=== PATIENT | female | born 1950 | race Caucasian/White ===

== ENCOUNTER → 2017-07-11 | Outpatient (CLI) | payer MEDICARE, SELFPAY | PROVIDERS: Visit Provider Internal Medicine Adolescent Medicine | DX: E78.5 Hyperlipidemia, unspecified (principal); E03.9 Hypothyroidism, unspecified; E11.9 Type 2 diabetes mellitus without complications | CPT/HCPCS: 36415; 80053; 80061; 83036; 84443 ==

== ENCOUNTER 2017-09-08 20:18 | Emergency (ER) | payer MEDICARE, SELFPAY ==
[2017-09-08 20:33] VITALS: BP 129/90; PULSE 66; RESP 18; TEMP 36.8; O2SAT 98; BMI 39.8
--- NOTE | 2017-09-08 20:43 | HMH.EDUTC ---
[facility] [place] Impression: Yeast infection Disposition: Home, Self-Care Condition on Discharge: Good Instructions: DI for Yeast Infection-Skin, Yeast Infection-Skin Additional Instructions: Keep area dry Wash with soap and water apply cream, then Vaseline, and use gauze pads to keep skin from making contact with skin. If symptoms spread or gets worse follow-up with primary care If symptoms worsen or do not improve return or be seen in the ER Prescriptions: Nystatin [Nystatin Cr 100,000 Units/GM 30GM] 0 gm TOPICAL UD DOSE PK #1 cream..g. Referrals: Osei Lawrence MD [Primary Care Provider] - Time of Disposition: 20:50 Medical Decision Making Vital Signs: 09/08/17 20:33 Temperature 98.2 F Temperature Source Tympanic Pulse Rate [Left Brachial] 66 Pulse Rate [Radial] 66 Respiratory Rate 18 Blood Pressure [Left Arm] 129/90 Blood Pressure Mean [Left Arm] 103 Blood Pressure Source [Left Arm] Automatic Cuff Blood Pressure Position [Left Arm] Sitting 02 Sat by Pulse Oximetry 98 Oxygen Delivery Method Room Air - Franko Inquiry Pt receiving controlled substance: No [facility] [place] - General Chief complaint: Urgent Treatment Center Stated complaint: rash Time Seen by Provider: 09/08/17 20:45 Mode of Arrival: Ambulatory Source of Information: Patient Limitations: No Limitations HEENT Symptoms (Recalled from RN notes): No Resp Symptoms (Recalled from RN notes): No Skin Symptoms (Recalled from RN notes): Yes (RASH) MS Symptoms (Recalled from RN notes): No Functional Status (Recalled from RN notes): N/A - History of Present Illness Provider Complaint: 66-year-old female presents for a rash under left breast and abdominal fold for 1 week. Patient states she has been keeping washcloths there but has noticed the rash is spreading. - Related Data Previous Rx's Medication Instructions Recorded Nystatin [Nystatin Cr 100,000 0 gm TOPICAL UD DOSE PK #1 09/08/17 Units/GM 30GM] cream..g. Allergies Allergy/AdvReac Type Severity Reaction Status Date / Time No Known Allergies Allergy Unverified 07/03/17 14:39 - Worker's Comp Is this a Worker's Comp case?: No Is this an [facility] Worker's Comp?: No Is this a [facility] Worker's Comp?: No [facility] History I have reviewed the patient's past medical history: Yes Medical History: Denies:: Cancer, Diabetes Mellitus Type 1, Diabetes Mellitus Type 2, MRSA Amputation: No Fractures: No - Social History Educational Level: Completed Grade School Smoking Status: Never smoker Alcohol Intake: never - Psychiatric History Expresses thoughts of harming self/others: None Suicide Plan Description: No Plan ROS Obtained: Yes All systems reviewed & no additional complaints, Yes Systems reviewed as appropriate & no additional complaints - Constitutional Constitutional: Reports system reviewed and no additional complaints, except as docu - Eyes Eyes: Reports system reviewed and no additional complaints, except as docu - ENT Ears, Nose, Mouth, and Throat: Reports system reviewed and no additional complaints, except as docu - Cardiovascular Cardiovascular: Reports system reviewed and no additional complaints, except as docu - Respiratory Respiratory: Yes system reviewed and no additional complaints, except as docu - Gastrointestinal Gastrointestingal: Reports: system reviewed and no additional complaints, except as docu - Musculoskeletal Musculoskeletal: Reports system reviewed and no additional complaints, except as docu - Integumentary/Breasts Skin/Breast: Reports system reviewed and no additional complaints, except as docu - Neurologic Neurologic: Reports system reviewed and no additional complaints, except as docu - Endocrine Endocrine: Reports system reviewed and no additional complaints, except as docu - Hematologic/Lymphatic Henatologic/Lymphatic: Reports system reviewed and no additional complaints, except as docu - Allergic/Immunologic Al
--- NOTE | 2017-09-08 20:46 | ED_ITS ---
[facility] [place] Impression: Yeast infection Disposition: Home, Self-Care Condition on Discharge: Good Instructions: DI for Yeast Infection-Skin, Yeast Infection-Skin Additional Instructions: Keep area dry Wash with soap and water apply cream, then Vaseline, and use gauze pads to keep skin from making contact with skin. If symptoms spread or gets worse follow-up with primary care If symptoms worsen or do not improve return or be seen in the ER Prescriptions: Nystatin [Nystatin Cr 100,000 Units/GM 30GM] 0 gm TOPICAL UD DOSE PK #1 cream..g. Referrals: Osei Lawrence MD [Primary Care Provider] - Time of Disposition: 20:50 Medical Decision Making Vital Signs: 09/08/17 20:33 Temperature 98.2 F Temperature Source Tympanic Pulse Rate [Left Brachial] 66 Pulse Rate [Radial] 66 Respiratory Rate 18 Blood Pressure [Left Arm] 129/90 Blood Pressure Mean [Left Arm] 103 Blood Pressure Source [Left Arm] Automatic Cuff Blood Pressure Position [Left Arm] Sitting 02 Sat by Pulse Oximetry 98 Oxygen Delivery Method Room Air - Franko Inquiry Pt receiving controlled substance: No [facility] [place] - General Chief complaint: Urgent Treatment Center Stated complaint: rash Time Seen by Provider: 09/08/17 20:45 Mode of Arrival: Ambulatory Source of Information: Patient Limitations: No Limitations HEENT Symptoms (Recalled from RN notes): No Resp Symptoms (Recalled from RN notes): No Skin Symptoms (Recalled from RN notes): Yes (RASH) MS Symptoms (Recalled from RN notes): No Functional Status (Recalled from RN notes): N/A - History of Present Illness Provider Complaint: 66-year-old female presents for a rash under left breast and abdominal fold for 1 week. Patient states she has been keeping washcloths there but has noticed the rash is spreading. - Related Data Previous Rx's Medication Instructions Recorded Nystatin [Nystatin Cr 100,000 0 gm TOPICAL UD DOSE PK #1 09/08/17 Units/GM 30GM] cream..g. Allergies Allergy/AdvReac Type Severity Reaction Status Date / Time No Known Allergies Allergy Unverified 07/03/17 14:39 - Worker's Comp Is this a Worker's Comp case?: No Is this an [facility] Worker's Comp?: No Is this a [facility] Worker's Comp?: No [facility] History I have reviewed the patient's past medical history: Yes Medical History: Denies:: Cancer, Diabetes Mellitus Type 1, Diabetes Mellitus Type 2, MRSA Amputation: No Fractures: No - Social History Educational Level: Completed Grade School Smoking Status: Never smoker Alcohol Intake: never - Psychiatric History Expresses thoughts of harming self/others: None Suicide Plan Description: No Plan ROS Obtained: Yes All systems reviewed & no additional complaints, Yes Systems reviewed as appropriate & no additional complaints - Constitutional Constitutional: Reports system reviewed and no additional complaints, except as docu - Eyes Eyes: Reports system reviewed and no additional complaints, except as docu - ENT Ears, Nose, Mouth, and Throat: Reports system reviewed and no additional complaints, except as docu - Cardiovascular Cardiovascular: Reports system reviewed and no additional complaints, except as docu - Respiratory Respiratory: Yes system reviewed and no additional complaints, except as docu - Gastrointestinal Gastr
[2017-09-08 20:53] VITALS: BP 129/90; PULSE 66; RESP 18; TEMP 36.8; O2SAT 98
== END 2017-09-08 20:55 | disposition home or self-care (01) ==
PROVIDERS: Emergency Provider Nurse Practitioner Family; Family Provider Internal Medicine Adolescent Medicine; PCP Internal Medicine Adolescent Medicine
DX: B37.9 Candidiasis, unspecified (principal)
CPT/HCPCS: G0463; 99202

== ENCOUNTER → 2017-12-03 08:42 | Outpatient (POV) | payer MEDICARE, SELFPAY | PROVIDERS: Family Provider Internal Medicine Adolescent Medicine; PCP Internal Medicine Adolescent Medicine; Visit Provider Physician Assistant | DX: Z00.00 Encounter for general adult medical examination without abnormal findings (principal) ==

== ENCOUNTER → 2018-01-05 08:10 | Outpatient (CLI) | payer MEDICARE, SELFPAY ==
[2018-01-05 08:53] LABS: Hemoglobin A1C 6.9 % (0.0-7.0)
[2018-01-05 09:07] LABS: Alanine Aminotransferase 32 U/L (12-78); Albumin Level 3.8 gm/dL (3.4-5.0); Albumin/Globulin Ratio 1.3 (1.1-1.8); Alkaline Phosphatase 79 U/L (46-116); Anion Gap 8.2 mEq/L (5-15); Aspartate Amino Transferase 21 U/L (15-37); Bilirubin,Total 0.4 mg/dL (0.2-1.0); Blood Urea Nitrogen 19 mg/dL (7-18); Calcium 9.3 mg/dL (8.5-10.1); Carbon Dioxide 30 mmol/L (21.0-32.0); Chloride 105 mmol/L (98-107); Chol/HDL Ratio 4.5 (1-3.5); Cholesterol 241 mg/dL (140-200); Creatinine,Serum 0.77 mg/dL (0.55-1.02); Estimated Glomerular Filt Rate 75 ml/min (>60); GFR (African American) 90 ML/MIN (>60); Glucose 144 mg/dL (74-106); HDL Cholesterol 53 mg/dL (29-89); LDL Cholesterol 152 mg/dL (0-130); Potassium 4.2 mmoL/L (3.5-5.1); Sodium 139 mmol/L (136-145); Thyroid Stimulating Hormone 4.09 uIU/ml (0.358-3.740); Total Protein,Serum 6.8 gm/dL (6.4-8.2); Triglycerides 179 mg/dL (30-200); VLDL Cholesterol 36 mg/dL (0-40)
== END ==
PROVIDERS: Visit Provider Internal Medicine Adolescent Medicine
DX: E11.9 Type 2 diabetes mellitus without complications (principal); E78.5 Hyperlipidemia, unspecified; E03.9 Hypothyroidism, unspecified
CPT/HCPCS: 36415; 80053; 80061; 83036; 84443

== ENCOUNTER → 2018-01-15 10:55 | Outpatient (CLI) | payer MEDICARE, SELFPAY ==
--- NOTE | 2018-01-15 10:57 | CT_ITS ---
CT abdomen pelvis wo/w con CLINICAL INDICATION: Abdominal mass, left lower quadrant pain, abdominal soreness ITS.REASON: ABD PAIN, ANEMIA ORDERING PHYSICIAN: Osei Lawrence MD PATIENT AGE: 67 years COMPARISON: None TECHNIQUE: Axial images obtained without and with contrast with sagittal and coronal reformats. Immediate and 5 minute delayed images are obtained of the abdomen. All CT scans at the facility use one or more dose reduction, viz: automated exposure control; ma/kV adjustment per patient size (including targeted exams where dose is matched to indication; i.e. head); or iterative reconstruction technique. PROCEDURE: Oral Contrast: None IV Contrast: 75 mL's of Isovue-370. FINDINGS: Lung bases are clear. There are 3 isodense lesions of the liver the largest in the right hepatic lobe centrally posterior to the right portal vein measuring 1.6 cm. This may be due to hepatic cysts. There has been a prior cholecystectomy. No significant ductal dilatation. The spleen and pancreas have an unremarkable appearance. The left adrenal gland is slightly enlarged but maintains an adreniform shape and not cystic. Right adrenal gland is unremarkable. No renal or ureteral calculi. No hydronephrosis or suspicious renal mass. There is no lytic isodensity projecting off the medial aspect of the left kidney at 16 mm consistent with a renal cyst. Unremarkable appendix. No intestinal obstruction or free air. There are scant diverticula within the sigmoid colon. No evidence of diverticulitis. No acute bony anomalies. Small nodes are present in the inguinal region. No dominant adenopathy. IMPRESSION: 1. No acute abdominal or pelvic findings. 2. Hepatic and left renal cysts
--- NOTE | 2018-01-15 12:04 | HMH.ITSHM ---
LISINOPRIL 40 MG METOPROLOLTART 50 MG LEVOTHYROXIN 125 MCG HYDROCHLOROT 25 MG
== END ==
PROVIDERS: Family Provider Internal Medicine Adolescent Medicine; PCP Internal Medicine Adolescent Medicine; Visit Provider Internal Medicine Adolescent Medicine
DX: R19.04 Left lower quadrant abdominal swelling, mass and lump (principal); D64.9 Anemia, unspecified
CPT/HCPCS: 74170; 74178; Q9967

== ENCOUNTER → 2018-02-22 14:51 | Outpatient (CLI) | payer MEDICARE, SELFPAY ==
[2018-02-22 15:07] LABS: Basophils % 0.7 % (0.1-2.0); Eosinophils # 0.2 K/mm3 (0.0-0.4); Eosinophils % 4.1 % (0.1-12.0); Hematocrit 36.5 % (37.0-47.0); Hemoglobin 12.4 g/dL (12.2-16.2); Lymphocytes # 1.8 K/mm3 (0.7-4.5); Mean Corpuscular Hemoglobin 29.1 pg (27.0-31.2); Mean Corpuscular Volume 85.5 fl (81-99); Mean Platelet Volume 7.8 fl (7.4-10.4); Monocytes # 0.3 K/mm3 (0.1-1.0); Monocytes % 6.9 % (1.7-9.3); Neutrophils # 1.5 K/mm3 (1.8-7.8); Neutrophils % 40.3 % (37.0-80.0); Platelet Count 210 K/mm3 (142-424); Red Blood Count 4.26 M/mm3 (4.20-5.40); Red Cell Distribution Width 13.3 % (11.5-17.5); White Blood Count 3.7 K/mm3 (4.8-10.8)
[2018-02-22 16:08] LABS: Alanine Aminotransferase 37 U/L (12-78); Albumin Level 4.1 gm/dL (3.4-5.0); Albumin/Globulin Ratio 1.4 (1.1-1.8); Alkaline Phosphatase 75 U/L (46-116); Amylase 52 U/L (25-125); Anion Gap 12.6 mEq/L (5-15); Aspartate Amino Transferase 22 U/L (15-37); Bilirubin,Total 0.5 mg/dL (0.2-1.0); Blood Urea Nitrogen 17 mg/dL (7-18); Calcium 9.8 mg/dL (8.5-10.1); Carbon Dioxide 30 mmol/L (21.0-32.0); Chloride 104 mmol/L (98-107); Creatinine,Serum 0.91 mg/dL (0.55-1.02); Estimated Glomerular Filt Rate 62 ml/min (>60); GFR (African American) 75 ML/MIN (>60); Globulin 2.9 gm/dl (1.3-3.2); Glucose 100 mg/dL (74-106); Lipase 306 u/L (73-393); Potassium 3.6 mmoL/L (3.5-5.1); Sodium 143 mmol/L (136-145)
== END ==
PROVIDERS: Visit Provider Internal Medicine Adolescent Medicine
DX: R11.2 Nausea with vomiting, unspecified (principal)
CPT/HCPCS: 36415; 80053; 82150; 83690; 85025

== ENCOUNTER → 2018-03-11 09:47 | Outpatient (POV) | payer MEDICARE, SELFPAY | PROVIDERS: Family Provider Internal Medicine Adolescent Medicine; PCP Internal Medicine Adolescent Medicine; Visit Provider Nurse Practitioner Acute Care | DX: Z00.00 Encounter for general adult medical examination without abnormal findings (principal) ==

== ENCOUNTER → 2018-04-26 09:39 | Outpatient (CLI) | payer MEDICARE, SELFPAY ==
--- NOTE | 2018-04-26 09:41 | US_ITS ---
US abdomen limited History:Midline abdominal pain Ordering Physician:Dora Bautista Patient Age: 67 years Comparison:01/15/2018 Findings: Pancreas:Unremarkable. No obvious mass or abnormal fluid collection. No ductal dilatation Liver:Scattered small cysts of the liver. There has been prior cholecystectomy. Common bile duct is somewhat prominent at 8 mm and may physiologic response to cholecystectomy. Right Kidney:Unremarkable. Normal size and echogenicity. No hydronephrosis Gallbladder: Prior cholecystectomy. IMPRESSION: Scattered small hepatic cyst corresponding to the CT abnormality. Largest cyst is in the portal region measuring 1.9 cm. There is mild prominence of common bile duct possibly related to the previous cholecystectomy. Otherwise negative right upper quadrant ultrasound
== END ==
PROVIDERS: PCP Nurse Practitioner Acute Care; Visit Provider Nurse Practitioner Acute Care
DX: K76.89 Other specified diseases of liver (principal); R10.12 Left upper quadrant pain
CPT/HCPCS: 76705

== ENCOUNTER → 2018-05-24 11:18 | Outpatient (CLI) | payer MEDICARE, SELFPAY ==
[2018-05-24 14:48] LABS: Chol/HDL Ratio 4.4 (1-3.5); Cholesterol 231 mg/dL (140-200); HDL Cholesterol 52 mg/dL (29-89); LDL Cholesterol 139 mg/dL (0-130); Triglycerides 199 mg/dL (30-200); VLDL Cholesterol 40 mg/dL (0-40)
[2018-05-24 19:17] LABS: Hemoglobin A1C 6.9 % (0.0-7.0)
== END ==
PROVIDERS: PCP Internal Medicine Adolescent Medicine; Visit Provider Internal Medicine Adolescent Medicine
DX: E11.69 Type 2 diabetes mellitus with other specified complication (principal); E78.5 Hyperlipidemia, unspecified
CPT/HCPCS: 36415; 80061; 83036

== ENCOUNTER → 2018-07-12 08:57 | Outpatient (CLI) | payer MEDICARE, SELFPAY ==
--- NOTE | 2018-07-12 08:59 | MM_ITS ---
MM Dig screening mamm BI w/CAD CAD Screening COMPARISON: Digital mammograms with CAD 01/15/2017 and outside films 11/05/2015 INDICATION: There is no personal or family history of breast cancer there has been previous biopsies on each breast for benign disease. TECHNIQUE: Standard CC and MLO images were obtained. R2 CAD reviewed. FINDINGS: The breasts are closed primarily of fat with very minimal scattered fibroglandular densities in each breast. There is minimal arterial calcification in each breast. There is no suspicious lesion and there are no suspicious microcalcifications. IMPRESSION: Fatty type breast parenchyma with no suspicious lesion seen BI-RADS Category: 2 Benign Finding(s) RECOMMENDED FOLLOW-UP: 1YR - 1 YEAR FOLLOW-UP (A letter has been sent to the patient regarding results of the study.)
== END ==
PROVIDERS: PCP Internal Medicine Adolescent Medicine; Visit Provider Internal Medicine Adolescent Medicine
DX: Z12.31 Encounter for screening mammogram for malignant neoplasm of breast (principal)
CPT/HCPCS: 77067

== ENCOUNTER → 2020-05-07 08:13 | Outpatient (CLI) | payer MEDICARE, SELFPAY ==
--- NOTE | 2020-05-07 08:16 | MM_ITS ---
PROCEDURE: MM DIG SCREENING MAMM BI W/CAD Digital Breast Tomosynthesis Included CLINICAL INDICATION: SCREENING There is no personal or family history of breast cancer. There has been a previous biopsy right breast for benign disease. COMPARISON: MG MA MAMMO SCRN DIGITL BILAT from 11/05/2015 MG DMSB DIG MAMM-SCREEN TOBY W/CAD from 01/15/2017 MG [facility] MM Dig screening mamm BI w/CAD from 07/12/2018 TECHNIQUE: Standard CC and MLO images and 3D Tomosynthesis was obtained. R2 CAD reviewed. FINDINGS: Mild diffuse scattered fibroglandular densities are seen in each breast. There is faint arterial calcification in each breast. There are fatty replaced nodes in both axilla. There is no suspicious lesion and no suspicious microcalcifications. IMPRESSION: Fibrofatty parenchyma with no suspicious lesions seen BI-RAD Category: 2 Benign Finding(s) FOLLOW-UP: 1YR 1 Year Follow-up (A letter has been sent to the patient regarding results of the study.) Dictated by: Dr. Ger Velazquez MD 05/10/2020 15:05 Dr. Ger Velazquez MD in [place] 05/10/2020 15:05
== END ==
PROVIDERS: PCP Family Medicine; Visit Provider Nurse Practitioner Family
DX: Z12.31 Encounter for screening mammogram for malignant neoplasm of breast (principal)
CPT/HCPCS: 77063; 77067

== ENCOUNTER 2020-06-20 09:33 | Emergency (ER) | payer MEDICARE, SELFPAY ==
[2020-06-20 09:35] VITALS: BP 181/89; PULSE 94; RESP 20; TEMP 36.8; O2SAT 95; BMI 43.0
--- NOTE | 2020-06-20 10:07 | HMH.EDUTC ---
[facility] – [place] Disposition Clinical Impression: Strep throat, Exposure to COVID-19 virus Disposition: Home, Self-Care Condition on Discharge: Good Instructions: DI for Strep Throat, Preventing the Spread of Coronavirus Discharge Instructions Additional Instructions: Start antibiotics today be sure to take it as ordered with the full length of time although you should start feeling better in 24-48 hours. Change toothbrush and toothpaste 24-48 hours after starting antibiotics Tylenol or Motrin as needed for fever or pain Encourage fluids, water, Gatorade, Powerade, try cold fluids, popsicles, ice cream will make it feel better You are contagious for 24 hours. Avoid kissing anyone, no eating or drinking after anyone. You are contagious. Follow-up the ER for new or worsening symptoms or no noticeable improvement over the next 24-48 hours. Follow-up with PCP this week. isolate until test results are negative Prescriptions: Azithromycin [Zithromax 250mg tab] 250 mg PO DIRECTED #6 tab Prescription Printed Referrals: Dario Watt [Primary Care Provider] - Time of Disposition: 10:12 Medical Decision Making - Franko Inquiry Pt receiving controlled substance: No Vital Signs: 06/20/20 09:35 Temperature 98.3 F Temperature Source Oral Pulse Rate [Right Brachial] 94 H Respiratory Rate 20 Blood Pressure [Right Arm] 181/89 H Blood Pressure Mean [Right Arm] 119 Blood Pressure Source [Right Arm] Automatic Cuff Blood Pressure Position [Right Arm] Sitting 02 Sat by Pulse Oximetry 95 Oxygen Delivery Method Room Air [facility] [place] HPI - General Chief complaint: Urgent Treatment Center Stated complaint: headache and sore throat Time Seen by Provider: 06/20/20 10:07 Mode of Arrival: Ambulatory Source of Information: Patient Limitations: No Limitations Description of Symptoms (Recalled from Triage Doc. by RN): PATIENT C/O SORE THROAT AND HEADACHE SINCE SUNDAY HEENT Symptoms (Recalled from RN notes): Yes Resp Symptoms (Recalled from RN notes): No Skin Symptoms (Recalled from RN notes): No MS Symptoms (Recalled from RN notes): No Functional Status (Recalled from RN notes): WNL - History of Present Illness Provider Complaint: 69 yr old female presnets for sore throat and headache since . pt denies any other symptom. pt states she works at [employer] and is unsure if exposed - Related Data Home Medications Medication Instructions Recorded Confirmed Levothyroxine Sodium 150 mcg PO DAILY 03/13/18 08/04/19 [Levothyroxine 150mcg (0.15mg) Tab] Metoprolol Tartrate 50 mg PO DAILY 03/13/18 08/04/19 Psyllium Husk [Metamucil] 660 gm PO DAILY 03/13/18 08/04/19 hydroCHLOROthiazide [HCTZ 25mg 25 mg PO DAILY 03/13/18 08/04/19 tab] lisinopriL [Lisinopril 40mg Tablet] 40 mg PO DAILY 03/13/18 08/04/19 Previous Rx's Medication Instructions Recorded Azithromycin [Zithromax 250mg 250 mg PO DIRECTED #6 tab 06/20/20 tab] Allergies Allergy/AdvReac Type Severity Reaction Status Date / Time No Known Allergies Allergy Verified 05/28/18 15:09 - Worker's Comp Is this a Worker's Comp case?: No [facility] History - Hepatitis A Screen Drug use history?: No High risk sexual behaviors?: No History of sexually transmitted infection?: No Currently employed?: No Childcare worker?: No Do you have indoor plumbing?: Yes Do you have electricity?: Yes Attestation statement:: This patient has been screened for Hepatitis A risk factors. I have reviewed the patient's past medical history: Yes Medical History: Reports:: Diabetes Mellitus Type 2, Gastroesophageal Reflux Disease(GERD), Hypertension Denies:: Cancer, Diabetes Mellitus Type 1, Internal Pacemaker, Lung Disease, MRSA, Seizures Other Medical History: Reports: Hypothyroidism Comment: morbid obesity Other Surgeries: Yes: Cholecystectomy, Hysterectomy-Total, Hysterectomy-Partial. No: Pacemaker Amputation: No Fractures: No Comment: hemorrhoidectomy - Social His
[2020-06-20 10:12] VITALS: BP 181/89; PULSE 94; RESP 20; TEMP 36.8; O2SAT 95
[2020-06-21 19:22] LABS: UTC Strep Screen (Rapid) Negative (Negative)
[2020-06-22 12:39] LABS: Covid-19 Nasal PCR Sendout Lex Positive
--- NOTE | 2020-06-22 12:51 | PC.NURSE ---
Attempted to call patient to notify of positive COVID results. No answer.
--- NOTE | 2020-06-22 13:01 | PC.NURSE ---
Patient notified of positive results.
== END 2020-06-20 10:17 | disposition home or self-care (01) ==
PROVIDERS: Emergency Provider Nurse Practitioner Family; PCP Family Medicine
DX: U07.1 COVID-19 (principal); J02.0 Streptococcal pharyngitis; I10 Essential (primary) hypertension; K21.9 Gastro-esophageal reflux disease without esophagitis; E03.9 Hypothyroidism, unspecified; Z90.49 Acquired absence of other specified parts of digestive tract; Z90.710 Acquired absence of both cervix and uterus; Z79.899 Other long term (current) drug therapy
CPT/HCPCS: G0463; 87880; 99201; U0004

== ENCOUNTER 2020-08-01 09:13 | Emergency (ER) | payer MEDICARE, SELFPAY ==
[2020-08-01 09:15] VITALS: BP 184/91; PULSE 84; RESP 14; TEMP 36.3; O2SAT 97; BMI 43.4
--- NOTE | 2020-08-01 09:38 | HMH.EDUTC ---
[facility] [place] Imp[place]: Exposure to COVID-19 virus Disposition: Home, Self-Care Condition on Discharge: Good Instructions: Preventing the Spread of Coronavirus Discharge Instructions Additional Instructions: Drink plenty of fluids. Follow up for your scheduled testing if your covid test is negative. Return if you begin to have difficulty breathing. Follow up with your regular doctor. GO TO THE ER FOR ANY WORSENING SYMPTOMS Referrals: Dario Watt [Primary Care Provider] - Time of Disposition: 09:49 Medical Decision Making - Medical Records Medical records reviewed: No: I reviewed the patient's medical records. - Franko Inquiry Pt receiving controlled substance: No Vital Signs: 08/01/20 09:15 08/01/20 09:56 Temperature 97.3 F L 97.3 F L Temperature Source Oral Pulse Rate 84 Pulse Rate [Right Brachial] 84 Respiratory Rate 14 14 Blood Pressure 184/91 H Blood Pressure [Right Arm] 184/91 H Blood Pressure Mean [Right Arm] 122 Blood Pressure Source [Right Arm] Automatic Cuff Blood Pressure Position [Right Arm] Sitting 02 Sat by Pulse Oximetry 97 Oxygen Delivery Method Room Air Orders (Tests/Meds): ORDERS Category Date Time Status Covid-19 Nasal PCR ([facility]) Routine Lab 08/01/20 09:30 [place] [facility] [place] General Stated complaint: covid test Time Seen by Provider: 08/01/20 09:39 - History of Present Illness Provider Complaint: She is here to have a covid test. She has a heart cath scheduled at for this coming Sunday. She states that she was told to get a covid test before the heart cath, but she did not recieve an order from her operations boardman. She denies any symptoms. - Related Data Home Medications Medication Instructions Recorded Confirmed Levothyroxine Sodium 150 mcg PO DAILY 03/13/18 08/04/19 [Levothyroxine 150mcg (0.15mg) Tab] Metoprolol Tartrate 50 mg PO DAILY 03/13/18 08/04/19 Psyllium Husk [Metamucil] 660 gm PO DAILY 03/13/18 08/04/19 hydroCHLOROthiazide [HCTZ 25mg 25 mg PO DAILY 03/13/18 08/04/19 tab] lisinopriL [Lisinopril 40mg Tablet] 40 mg PO DAILY 03/13/18 08/04/19 Previous Rx's Medication Instructions Recorded Azithromycin [Zithromax 250mg 250 mg PO DIRECTED #6 tab 06/20/20 tab] Allergies Allergy/AdvReac Type Severity Reaction Status Date / Time No Known Allergies Allergy Verified 05/28/18 15:09 [facility] History - Hepatitis A Screen Attestation statement:: This patient has been screened for Hepatitis A risk factors. I have reviewed the patient's past medical history: Yes Medical History: Reports:: Diabetes Mellitus Type 2, Gastroesophageal Reflux Disease(GERD), Hypertension Denies:: Cancer, Diabetes Mellitus Type 1, Internal Pacemaker, Lung Disease, MRSA, Seizures Other Medical History: Reports: Hypothyroidism Comment: morbid obesity Other Surgeries: Yes: Cholecystectomy, Hysterectomy-Total, Hysterectomy-Partial. No: Pacemaker Amputation: No Fractures: No Comment: hemorrhoidectomy - Social History Smoking Status: Never smoker Alcohol Intake: never Occupational Status: other Housing: house ROS Obtained: Yes All systems reviewed & no additional complaints - Constitutional Constitutional: Reports system reviewed and no additional complaints, except as docu - Eyes Eyes: Reports system reviewed and no additional complaints, except as docu - ENT Ears, Nose, Mouth, and Throat: Reports system reviewed and no additional complaints, except as docu - Cardiovascular Cardiovascular: Reports system reviewed and no additional complaints, except as docu - Respiratory Respiratory: Reports system reviewed and no additional complaints, except as docu - Gastrointestinal Gastrointestingal: Reports: system reviewed and no additional complaints, except as docu Physical Exam - General General appearance: alert, in no apparent distress - Head Head exam: atraumatic, normocephalic, norm
[2020-08-01 09:56] VITALS: BP 184/91; PULSE 84; RESP 14; TEMP 36.3; O2SAT 97
== END 2020-08-01 10:03 | disposition home or self-care (01) ==
PROVIDERS: Emergency Provider Nurse Practitioner Family; PCP Family Medicine
DX: Z11.52 Encounter for screening for COVID-19 (principal); K21.9 Gastro-esophageal reflux disease without esophagitis; I10 Essential (primary) hypertension; E11.9 Type 2 diabetes mellitus without complications; E03.9 Hypothyroidism, unspecified
CPT/HCPCS: G0463; 99202; U0003

== ENCOUNTER 2021-02-22 14:46 | Emergency (ER) | payer MEDICARE, SELFPAY ==
[2021-02-22 14:50] VITALS: BP 190/94; PULSE 73; RESP 20; TEMP 36.4; O2SAT 97; BMI 44.2
[2021-02-22 15:34] VITALS: BP 190/94; PULSE 73; RESP 20; TEMP 36.4; O2SAT 97
--- NOTE | 2021-02-22 15:35 | HMH.EDUTC ---
[facility] [place] Dis[place] Clinical Impression: Exposure to COVID-19 virus Disposition: Home, Self-Care Condition on Discharge: Good Instructions: Preventing the Spread of Coronavirus Discharge Instructions Additional Instructions: Drink plenty of fluids. Take tylenol for pain or fever. Return if you begin to have difficulty breathing. Follow up with your regular doctor. GO TO THE ER FOR ANY WORSENING SYMPTOMS Quarantine until you know the results of your covid-19 test. If it is positive, the health department should call you and give you further instructions about your length of Quarantine and other thing. Follow up with your primary care physician about your elevated blood pressure. Referrals: Dario Watt [Primary Care Provider] - Time of Disposition: 15:41 Medical Decision Making - Medical Records Medical records reviewed: No: I reviewed the patient's medical records. - Franko Inquiry Pt receiving controlled substance: No Vital Signs: 02/22/21 14:50 02/22/21 15:34 Temperature 97.6 F 97.6 F Temperature Source Oral Pulse Rate 73 Pulse Rate [Right] 73 Respiratory Rate 20 20 Blood Pressure 190/94 H Blood Pressure [Left Arm] 190/94 H Blood Pressure Mean [Left Arm] 126 Blood Pressure Source [Left Arm] Automatic Cuff Blood Pressure Position [Left Arm] Sitting 02 Sat by Pulse Oximetry 97 Oxygen Delivery Method Room Air Orders (Tests/Meds): ORDERS Category Date Time Status Covid-19 Nasal PCR ([facility]) Routine Lab 02/22/21 15:00 Received [facility] [place] HPI - General Stated complaint: covid test Time Seen by Provider: 02/22/21 15:40 Mode of Arrival: Ambulatory Source of Information: Patient Limitations: No Limitations Description of Symptoms (Recalled from Triage Doc. by RN): COVID TEST D/T EXPOSURE. DENIES SYMPTOMS HEENT Symptoms (Recalled from RN notes): No Resp Symptoms (Recalled from RN notes): No Skin Symptoms (Recalled from RN notes): No MS Symptoms (Recalled from RN notes): No Functional Status (Recalled from RN notes): WNL - History of Present Illness Provider Complaint: She is here requesting a covid test. She has been exposed to covid last week. She denies any symptoms. - Related Data Home Medications Medication Instructions Recorded Confirmed Levothyroxine Sodium 150 mcg PO DAILY 03/13/18 08/04/19 [Levothyroxine 150mcg (0.15mg) Tab] Metoprolol Tartrate 50 mg PO DAILY 03/13/18 08/04/19 Psyllium Husk [Metamucil] 660 gm PO DAILY 03/13/18 08/04/19 hydroCHLOROthiazide [HCTZ 25mg 25 mg PO DAILY 03/13/18 08/04/19 tab] lisinopriL [Lisinopril 40mg Tablet] 40 mg PO DAILY 03/13/18 08/04/19 Previous Rx's Medication Instructions Recorded Azithromycin [Zithromax 250mg 250 mg PO DIRECTED #6 tab 06/20/20 tab] Allergies Allergy/AdvReac Type Severity Reaction Status Date / Time No Known Allergies Allergy Verified 05/28/18 15:09 - Worker's Comp Is this a Worker's Comp case?: No [facility] History - Hepatitis A Screen Drug use history?: No High risk sexual behaviors?: No History of sexually transmitted infection?: No Currently employed?: No Childcare worker?: No Do you have indoor plumbing?: Yes Do you have electricity?: Yes Attestation statement:: This patient has been screened for Hepatitis A risk factors. I have reviewed the patient's past medical history: Yes Medical History: Reports:: Diabetes Mellitus Type 2, Gastroesophageal Reflux Disease(GERD), Hypertension Denies:: Cancer, Diabetes Mellitus Type 1, Internal Pacemaker, Lung Disease, MRSA, Seizures Other Medical History: Reports: Hypothyroidism Comment: morbid obesity Other Surgeries: Yes: Cholecystectomy, Hysterectomy-Total, Hysterectomy-Partial. No: Pacemaker Amputation: No Fractures: No Comment: hemorrhoidectomy - Social History Smoking Status: Never smoker Alcohol Intake: never Occupational Status: other Housing: house ROS Obtained: Yes All systems reviewed & no
== END 2021-02-22 15:45 | disposition home or self-care (01) ==
PROVIDERS: Emergency Provider Nurse Practitioner Family; PCP Family Medicine
DX: Z20.822 Contact with and (suspected) exposure to COVID-19 (principal); E11.9 Type 2 diabetes mellitus without complications; K21.9 Gastro-esophageal reflux disease without esophagitis; I10 Essential (primary) hypertension; E03.9 Hypothyroidism, unspecified
CPT/HCPCS: 99202; G0463; U0003

== ENCOUNTER → 2021-05-31 07:29 | Outpatient (CLI) | payer MEDICARE, SELFPAY ==
--- NOTE | 2021-05-31 07:32 | MM_ITS ---
PROCEDURE INFORMATION: Exam: MG Bilateral Screening 3D Mammography Exam date and time: 05/31/2021 7:32 AM Age: 70 years old Clinical indication: Encounter for screening mammogram for malignant neoplasm of breast TECHNIQUE: Imaging protocol: Bilateral screening tomosynthesis and 2D mammography including computer-aided detection (CAD) when performed. COMPARISON: 1. MG MM DIG SCREENING MAMM BI W/CAD 05/07/2020 8:23 AM 2. MG SCBI MM Dig screening mamm BI w/CAD 07/12/2018 9:18 AM FINDINGS: MAMMOGRAPHY: Breast composition: The breasts are almost entirely fatty. Mass: None. Architectural distortion: None. Calcifications: No suspicious calcifications. Asymmetric density: None. Skin thickening: None. Axillary adenopathy: None. IMPRESSION: No mammographic evidence of malignancy. Annual screening is recommended unless otherwise clinically indicated. ASSESSMENT: BI-RADS Category 1: Negative
== END ==
PROVIDERS: PCP Family Medicine; Visit Provider Family Medicine
DX: Z12.31 Encounter for screening mammogram for malignant neoplasm of breast (principal)
CPT/HCPCS: 77063; 77067

== ENCOUNTER 2021-06-15 10:33 | Emergency (ER) | payer MEDICARE, SELFPAY ==
[2021-06-15 11:40] VITALS: BP 144/77; PULSE 70; RESP 22; TEMP 36.9; O2SAT 97; BMI 47.9
--- NOTE | 2021-06-15 12:00 | HMH.EDUTC ---
[facility] [place] Clinical Impression: URI (upper respiratory infection) Qualifiers: URI type: unspecified URI Qualified Code(s): J06.9 - Acute upper respiratory infection, unspecified Disposition: Home, Self-Care Condition on Discharge: Good Instructions: Sore Throat, Sinusitis, DI for Sinusitis Additional Instructions: *Monitor Temp, Over the counter Motrin or Tylenol as directed/as needed Tylenol every 4 hours and Motrin every 6 hours (as long as your family doctor has told you that you can take it) for fever or pain. and straight to ER if unable to lower temp less than 101.0 after medication given *Warm salt water gargles may help to soothe the throat *Throat Lozenges *Warm fluids like tea with honey may help to soothe the throat *Sleep elevated *Humidifier/Vaporizer Your throat swab was sent for culture. Those results are typically sent to your primary care. Be sure to follow up in 2-3 days with your family doctor/primary care physician if no improvement so they can review those result and treat if necessary. If you don?t have a primary care doctor, I recommend you get one but in the mean time, you will have to return to a walk in clinic Follow up IMMEDIATELY for new or worsening symptoms or no Noticeable improvement over the next 48-72 hours. 911 for difficulty breathing or swallowing You were tested for today for COVID19 your test result should be back in the next 24-48 hours, you may Check your results on the [facility] My health portal or in person at the Health information from [phone] if you have issues logging wireless sales consultant [phone] You was given a handout with instructions for Self Quarantine and Self isolation for while you wait on test results and what to do if they are positive If you are positive the Health Dept will be contacting you also Make sure to take your Vitamins Vit. C Vit D and Zinc if you can take them Prescriptions: Azithromycin [Z-Yinka 250mg Tab] 250 mg PO DIRECTED #6 tab Transmission Status: Pending to [id number] Referrals: Dario Watt [Primary Care Provider] - As needed Time of Disposition: 12:13 Medical Decision Making - Franko Inquiry Pt receiving controlled substance: No Franko was queried for this patient: No Vital Signs: 06/15/21 11:40 Temperature 98.4 F Temperature Source Oral Pulse Rate [Right Brachial] 70 Respiratory Rate 22 Blood Pressure [Right Arm] 144/77 H Blood Pressure Mean [Right Arm] 99 Blood Pressure Source [Right Arm] Automatic Cuff Blood Pressure Position [Right Arm] Sitting 02 Sat by Pulse Oximetry 97 Oxygen Delivery Method Room Air - Lab Data Lab results reviewed: Yes: I reviewed the patient's lab results. Orders (Tests/Meds): ORDERS Category Date Time Status Covid-19 Nasal PCR ([facility]) Routine Lab 06/15/21 11:37 Received Medical Decision Narrative: Patient states that she has taken azithromycin in the past without complications or reactions [facility] [place] - General Stated complaint: fever, chills, sore throat, soa, cough Time Seen by Provider: 06/15/21 12:00 Mode of Arrival: Ambulatory Source of Information: Patient Limitations: No Limitations Description of Symptoms (Recalled from Triage Doc. by RN): PATIENT C/O SORE THROAT, COUGH, HEADACHE AND CHILLS X 2 DAYS HEENT Symptoms (Recalled from RN notes): Yes Resp Symptoms (Recalled from RN notes): No Skin Symptoms (Recalled from RN notes): No MS Symptoms (Recalled from RN notes): No Functional Status (Recalled from RN notes): WNL - History of Present Illness Provider Complaint: Patient states that she has been having sinus pain and pressure along with sore throat, cough, body aches and chills States that today she is having headache so she came in to get checked States that she feels like she may have a sinus infection but wanted to get tested for Strep flu and COVID states that she is fully vaccinated and has taken the booster but still wanted to get tested for COVID to make sure -
[2021-06-15 12:15] VITALS: BP 144/77; PULSE 70; RESP 22; TEMP 36.9; O2SAT 97
[2021-06-15 12:16] LABS: UTC Influenza A Antigen Negative (Negative); UTC Strep Screen (Rapid) Negative (Negative)
[2021-06-15 12:17] LABS: UTC Influenza B Antigen Negative (Negative)
== END 2021-06-15 12:23 | disposition home or self-care (01) ==
PROVIDERS: Emergency Provider Nurse Practitioner; PCP Family Medicine
DX: J06.9 Acute upper respiratory infection, unspecified (principal); Z20.822 Contact with and (suspected) exposure to COVID-19; E03.9 Hypothyroidism, unspecified; E11.9 Type 2 diabetes mellitus without complications; K21.9 Gastro-esophageal reflux disease without esophagitis; I10 Essential (primary) hypertension
CPT/HCPCS: G0463; 87804; 87880; 99203; C9803; U0003; U0005

== ENCOUNTER → 2022-07-27 09:42 | Outpatient (CLI) | payer MEDICARE, SELFPAY ==
--- NOTE | 2022-07-27 09:46 | MM_ITS ---
PROCEDURE INFORMATION: Exam: MG Bilateral Screening 3D Mammography Exam date and time: 07/27/2022 9:40 AM Age: 71 years old Clinical indication: Screening examination TECHNIQUE: Imaging protocol: Bilateral Screening tomosynthesis and 2D mammography including computer-aided detection (CAD) when performed. COMPARISON: 1. MG MM DIG SCREENING MAMM BI W/CAD 05/31/2021 7:55 AM 2. MG MM DIG SCREENING MAMM BI W/CAD 05/07/2020 8:23 AM FINDINGS: MAMMOGRAPHY: Breast composition: The breasts are almost entirely fatty. Mass: None. Architectural distortion: None. Calcifications: No suspicious calcifications. Asymmetric density: None. Skin thickening: None. Axillary adenopathy: None. IMPRESSION: No mammographic evidence of malignancy. Annual screening is recommended unless otherwise clinically indicated. ASSESSMENT: BI-RADS Category 1: Negative
== END ==
PROVIDERS: PCP Family Medicine; Visit Provider Family Medicine
DX: Z12.31 Encounter for screening mammogram for malignant neoplasm of breast (principal)
CPT/HCPCS: 77063; 77067

== ENCOUNTER 2022-08-17 09:23 | Emergency (ER) | payer MEDICARE, SELFPAY ==
[2022-08-17 09:45] VITALS: BP 156/85; PULSE 83; RESP 20; TEMP 36.7; O2SAT 94; BMI 44.2
--- NOTE | 2022-08-17 09:56 | EXP.UTC ---
Discharge Plan Disposition Patient Disposition: Home, Self-Care Condition: Good Prescriptions Prescriptions: New benzonatate [benzonatate] 100 mg capsule 100 mg PO TIDP PRN (Reason: Cough) Qty: 30 0RF methylprednisolone 4 mg Tablets,Dose Pack 4 mg PO DIRECTED Qty: 21 0RF amoxicillin-pot clavulanate 875-125 mg Tablet 1 tab PO Q12H Qty: 20 0RF No Action azithromycin 250 MG tablet 250 mg PO DIRECTED Qty: 6 0RF Rx Instructions: Take two (2) tablets on day #1, then one (1) tablet day #2 thru #5 azithromycin 250 MG tablet 250 mg PO DIRECTED Qty: 6 0RF Rx Instructions: Take two (2) tablets on day #1, then one (1) tablet day #2 thru #5 levothyroxine 150 MCG tablet 150 mcg PO DAILY metoprolol tartrate 50 MG tablet 50 mg PO DAILY hydrochlorothiazide 25 MG tablet 25 mg PO DAILY lisinopril 40 MG tablet 40 mg PO DAILY psyllium husk [Metamucil] 660 GM powder 660 g PO DAILY Referrals Follow up/Referrals: Dario Watt [Primary Care Provider] - See instructions Activity Restrictions/Add. Instructions Additional Instructions/Restrictions: Drink plenty of fluids. Take tylenol or ibuprofen for pain or fever. Take the medications as directed. Follow up with your regular doctor. GO TO THE ER FOR ANY WORSENING SYMPTOMS Clinical Impressions Clinical Impression: Bronchitis, Sinusitis Instructions Patient Instructions: DI for Sinusitis, DI for Acute Bronchitis Discharge ED Provider: Artis Martinez [facility] General Stated complaint: Headache sore throat drainage Time Seen by Provider: 08/17/22 09:56 History of Present Illness Provider Complaint: She states that for the past 3 days she has had chest and sinus congestion. Related Data Home Medications Medication Instructions Recorded Confirmed hydrochlorothiazide 25 mg tablet 25 mg PO DAILY HTN 03/13/18 08/04/19 levothyroxine 150 mcg tablet 150 mcg PO DAILY THYROID 03/13/18 08/04/19 lisinopril 40 mg tablet 40 mg PO DAILY HTN 03/13/18 08/04/19 metoprolol tartrate 50 mg tablet 50 mg PO DAILY HTN 03/13/18 08/04/19 psyllium husk 3.4 gram/5.4 gram 660 g PO DAILY CONSTIPATION 03/13/18 08/04/19 oral powder (Metamucil) Previous Rx's Medication Instructions Recorded azithromycin 250 mg tablet 250 mg PO DIRECTED #6 tabs 06/20/20 azithromycin 250 mg tablet 250 mg PO DIRECTED #6 tabs 06/15/21 amoxicillin 875 mg-potassium 1 tab PO Q12H #20 tabs 08/17/22 clavulanate 125 mg tablet benzonatate 100 mg capsule 100 mg PO TIDP PRN Cough #30 caps 08/17/22 methylprednisolone 4 mg tablets in 4 mg PO DIRECTED #21 tabs 08/17/22 a dose pack Allergies Allergy/AdvReac Type Severity Reaction Status Date / Time No Known Allergies Allergy Verified 08/17/22 10:12 [facility] Disclaimer: The information contained in this section may have been updated after the patient was seen, as this information can be updated by other users. Family History (Updated 08/17/22 @ 10:12 by Brigette Goodman RN) Other No significant family history Social History Smoking Status: Never smoker second hand exposure: No alcohol intake: never current occupational status: other Travel in the last 8 weeks: None housing: house caffeine: Yes ROS Obtained: Yes All systems reviewed & no additional complaints except as documented Constitutional Constitutional: Reports poor appetite Eyes Eyes: Reports system reviewed and no additional complaints, except as documented ENT Ears, Nose, Mouth, and Throat: Reports as per HPI Cardiovascular Cardiovascular: Reports system reviewed and no additional complaints, except as documented and Denies chest pain Respiratory Respiratory: Denies shortness of breath, Denies chest congestion, Reports cough, Denies stridor and Denies wheezing Gastrointestinal Gastrointestingal: Reports system reviewed and
[2022-08-17 10:01] LABS: UTC Strep Screen (Rapid) Negative (Negative)
[2022-08-17 11:15] VITALS: BP 156/85; PULSE 83; RESP 20; TEMP 36.7; O2SAT 94
== END 2022-08-17 11:10 | disposition home or self-care (01) ==
PROVIDERS: Emergency Provider Nurse Practitioner Family; PCP Family Medicine
DX: J40 Bronchitis, not specified as acute or chronic (principal); J32.9 Chronic sinusitis, unspecified
CPT/HCPCS: 87880; 99212; 99213; G0463

== ENCOUNTER 2022-09-09 14:07 | Emergency (ER) | payer MEDICARE, SELFPAY ==
[2022-09-09 16:10] VITALS: BP 152/69; PULSE 77; RESP 12; TEMP 36.7; O2SAT 96; BMI 45.7
--- NOTE | 2022-09-09 16:45 | EXP.UTC ---
Discharge Plan Disposition Patient Disposition: Home, Self-Care Prescriptions Prescriptions: New Coricidin HBP Chest Oscar-Cough 10-200 mg capsule 1 tab-cap PO Q8H PRN (Reason: cough) Qty: 60 0RF No Action levothyroxine 150 MCG tablet 150 mcg PO DAILY hydrochlorothiazide 25 MG tablet 25 mg PO DAILY lisinopril 40 MG tablet 40 mg PO DAILY psyllium husk [Metamucil] 660 GM powder 660 g PO DAILY omeprazole 40 mg capsule,delayed release(DR/EC) 40 mg PO DAILY Label Comments: TAKE 1 CAPSULE BY MOUTH ONCE DAILY felodipine 10 mg tablet extended release 24 hr 10 mg PO DAILY Label Comments: TAKE 1 TABLET BY MOUTH ONCE DAILY repaglinide 2 mg tablet 2 mg PO DAILY Label Comments: TAKE 1 TABLET BY MOUTH TWICE DAILY BEFORE MEAL(S) metoprolol succinate 200 mg tablet extended release 24 hr 200 mg PO DAILY Label Comments: TAKE 1 TABLET BY MOUTH ONCE DAILY glipizide 10 mg tablet 10 mg PO BID Label Comments: TAKE 1 TABLET BY MOUTH TWICE DAILY BEFORE MEAL(S) Januvia 100 mg tablet 100 mg PO DAILY Label Comments: TAKE 1 TABLET BY MOUTH ONCE DAILY nebivolol 20 mg tablet 20 mg PO DAILY Label Comments: TAKE 1 TABLET BY MOUTH ONCE DAILY Referrals Follow up/Referrals: Dario Watt [Primary Care Provider] - See instructions Clinical Impressions Clinical Impression: Cough Qualifiers: Cough type: acute Qualified Code(s): R05.1 - Acute cough Instructions Patient Instructions: Cough Discharge ED Provider: Velma Solomon [facility] General Stated complaint: cough,headache Mode of Arrival: Ambulatory Source of Information: Patient Limitations: No Limitations Time Seen by Provider: 09/09/22 16:45 Description of Symptoms (Recalled from Triage Doc. by RN): coughing, and DIEGO HEENT Symptoms (Recalled from RN notes): Yes Resp Symptoms (Recalled from RN notes): No Skin Symptoms (Recalled from RN notes): No MS Symptoms (Recalled from RN notes): No Functional Status (Recalled from RN notes): n/a History of Present Illness Provider Complaint: Pt states that she just got over bronchitis. She states that on Sunday she started coughing again till her head hurt. She states that has been only coughing with no sinus symptoms involved. Related Data Home Medications Medication Instructions Recorded Confirmed hydrochlorothiazide 25 mg tablet 25 mg PO DAILY HTN 03/13/18 08/04/19 levothyroxine 150 mcg tablet 150 mcg PO DAILY THYROID 03/13/18 09/09/22 lisinopril 40 mg tablet 40 mg PO DAILY HTN 03/13/18 09/09/22 psyllium husk 3.4 gram/5.4 gram 660 g PO DAILY CONSTIPATION 03/13/18 08/04/19 oral powder (Metamucil) felodipine 10 mg tablet,extended 10 mg PO DAILY . 09/09/22 09/09/22 release 24 hr glipizide 10 mg tablet 10 mg PO BID . 09/09/22 09/09/22 metoprolol succinate 200 mg 200 mg PO DAILY . 09/09/22 09/09/22 tablet,extended release 24 hr nebivolol 20 mg tablet 20 mg PO DAILY . 09/09/22 09/09/22 omeprazole 40 mg capsule,delayed 40 mg PO DAILY . 09/09/22 09/09/22 release repaglinide 2 mg tablet 2 mg PO DAILY . 09/09/22 09/09/22 sitagliptin phosphate 100 mg 100 mg PO DAILY . 09/09/22 09/09/22 tablet (Januvia) Previous Rx's Medication Instructions Recorded dextromethorphan-guaifenesin 10 1 tab-cap PO Q8H PRN cough #60 caps 09/09/22 mg-200 mg capsule (Coricidin HBP Chest Congestion-Cough) Allergies Allergy/AdvReac Type Severity Reaction Status Date / Time No Known Allergies Allergy Verified 09/09/22 16:14 Worker's Comp Is this a Worker's Comp case?: No [facility] Disclaimer: The information contained in this section may have been updated after the patient was seen, as this information can be updated by other users. Family History Other No significant family history Social History Smoking S
[2022-09-09 17:09] VITALS: BP 152/69; PULSE 77; RESP 12; TEMP 36.7; O2SAT 96
== END 2022-09-09 17:08 | disposition home or self-care (01) ==
PROVIDERS: Emergency Provider Nurse Practitioner Family; PCP Family Medicine
DX: R05.1 Acute cough (principal)
CPT/HCPCS: 99212; 99213; G0463

== ENCOUNTER 2022-10-05 21:47 | Emergency (ER) | payer MEDICARE, SELFPAY ==
[2022-10-05 21:49] VITALS: BP 129/63; PULSE 74; RESP 19; TEMP 36.9; O2SAT 96; BMI 44.2
--- NOTE | 2022-10-05 22:04 | HMH.EDGENADL ---
Discharge Plan Disposition Patient Disposition: Home, Self-Care Condition: Good Prescriptions Prescriptions: New permethrin 5 % cream 1 applic topical Q14D Qty: 60 0RF Rx Instructions: apply second treatment 14 days after first treatment if live lice remain hydroxyzine pamoate [Vistaril] 50 mg capsule 50 mg PO Q8H PRN (Reason: itching) Qty: 14 0RF No Action glipizide 10 mg tablet 10 mg PO DAILY Label Comments: TAKE 1 TABLET BY MOUTH TWICE DAILY BEFORE MEAL(S) felodipine 5 mg tablet extended release 24 hr 5 mg PO DAILY omeprazole 40 mg capsule,delayed release(DR/EC) 40 mg PO DAILY Label Comments: TAKE 1 CAPSULE BY MOUTH ONCE DAILY simvastatin 40 mg tablet 40 mg PO DAILY Label Comments: TAKE 1 TABLET BY MOUTH ONCE DAILY AT NIGHT levothyroxine 125 mcg tablet 125 mcg PO DAILY Label Comments: TAKE 1 TABLET BY MOUTH ONCE DAILY lisinopril 40 mg tablet 40 mg PO DAILY Label Comments: TAKE 1 TABLET BY MOUTH ONCE DAILY Januvia 100 mg tablet 100 mg PO DAILY Label Comments: TAKE 1 TABLET BY MOUTH ONCE DAILY nebivolol 20 mg tablet 20 mg PO DAILY Label Comments: TAKE 1 TABLET BY MOUTH ONCE DAILY Jardiance 25 mg tablet 25 mg PO DAILY Label Comments: TAKE 1 TABLET BY MOUTH ONCE DAILY Referrals Follow up/Referrals: Dario Watt [Primary Care Provider] - See instructions Clinical Impressions Clinical Impression: Scabies Instructions Patient Instructions: Scabies Print Language Print Language: Romansh Discharge ED Provider: José Bravo General Adult HPI General Chief complaint: Wound/Laceration Stated complaint: rash over the body Time Seen by Provider: 10/05/22 22:11 Mode of Arrival: Ambulatory Source of Information: Patient Limitations: No Limitations Description of Symptoms (Recalled from ER Triage Doc. by RN): 71 F presents with generalized red rash x1 week. She is unaware of any changes to external products at home; however, she does report changes to her oral medications. Patient adds that this rash is itching, and at some areas on her legs have scabbed over. History of Present Illness HPI narrative: Patient presents to the emergency department with global rash and itching. The patient states that this has been there for a week and is spreading. She states she recently moved to a new apartment. Denies any fever, chills, cough, congestion, new medications. Related Data Home Medications Medication Instructions Recorded Confirmed empagliflozin 25 mg tablet 25 mg PO DAILY Diabetes 10/05/22 10/05/22 (Jardiance) felodipine 5 mg tablet,extended 5 mg PO DAILY High blood pressure 10/05/22 10/05/22 release 24 hr glipizide 10 mg tablet 10 mg PO DAILY Diabetes 10/05/22 10/05/22 levothyroxine 125 mcg tablet 125 mcg PO DAILY Hypothyroidism 10/05/22 10/05/22 lisinopril 40 mg tablet 40 mg PO DAILY High blood pressure 10/05/22 10/05/22 nebivolol 20 mg tablet 20 mg PO DAILY High blood pressure 10/05/22 10/05/22 omeprazole 40 mg capsule,delayed 40 mg PO DAILY Acid reflux 10/05/22 10/05/22 release simvastatin 40 mg tablet 40 mg PO DAILY Cholesterol 10/05/22 10/05/22 sitagliptin phosphate 100 mg 100 mg PO DAILY Diabetes 10/05/22 10/05/22 tablet (Januvia) Previous Rx's Medication Instructions Recorded hydroxyzine pamoate 50 mg capsule 50 mg PO Q8H PRN itching #14 caps 10/05/22 (Vistaril) permethrin 5 % topical cream 1 applic topical Q14D 2 doses #60 10/05/22 grams Allergies Allergy/AdvReac Type Severity Reaction Status Date / Time No Known Allergies Allergy Verified 09/09/22 16:14 [facility] Disclaimer: The information contained in this section may have been updated after the patient was seen, as this information can be updated by other users. Family History Other No significant family history
[2022-10-05 22:27] VITALS: BP 127/78; PULSE 67; RESP 19; TEMP 36.9; O2SAT 96
== END 2022-10-05 22:28 | disposition home or self-care (01) ==
PROVIDERS: Emergency Provider Emergency Medicine; PCP Family Medicine
DX: B86 Scabies (principal)
CPT/HCPCS: 99282; 99283

== ENCOUNTER 2022-12-09 09:31 | Emergency (ER) | payer MEDICARE, SELFPAY ==
[2022-12-09 09:31] VITALS: BP 158/85; PULSE 79; RESP 19; TEMP 36.8; O2SAT 96; BMI 44.8
--- NOTE | 2022-12-09 10:23 | EXP.UTC ---
Discharge Plan Disposition Patient Disposition: Home, Self-Care Condition: Good Prescriptions Prescriptions: New cephalexin [cephalexin] 500 mg tablet 500 mg PO BID 7 Days Qty: 14 0RF No Action glipizide 10 mg tablet 10 mg PO DAILY Label Comments: TAKE 1 TABLET BY MOUTH TWICE DAILY BEFORE MEAL(S) felodipine 5 mg tablet extended release 24 hr 5 mg PO DAILY omeprazole 40 mg capsule,delayed release(DR/EC) 40 mg PO DAILY Label Comments: TAKE 1 CAPSULE BY MOUTH ONCE DAILY simvastatin 40 mg tablet 40 mg PO DAILY Label Comments: TAKE 1 TABLET BY MOUTH ONCE DAILY AT NIGHT levothyroxine 125 mcg tablet 125 mcg PO DAILY Label Comments: TAKE 1 TABLET BY MOUTH ONCE DAILY lisinopril 40 mg tablet 40 mg PO DAILY Label Comments: TAKE 1 TABLET BY MOUTH ONCE DAILY Januvia 100 mg tablet 100 mg PO DAILY Label Comments: TAKE 1 TABLET BY MOUTH ONCE DAILY nebivolol 20 mg tablet 20 mg PO DAILY Label Comments: TAKE 1 TABLET BY MOUTH ONCE DAILY Jardiance 25 mg tablet 25 mg PO DAILY Label Comments: TAKE 1 TABLET BY MOUTH ONCE DAILY hydroxyzine pamoate [Vistaril] 50 mg capsule 50 mg PO Q8H PRN (Reason: itching) Qty: 14 0RF metformin 500 mg tablet extended release 24 hr 500 mg PO BID Label Comments: TAKE 1 TABLET BY MOUTH ONCE DAILY FOR 7 DAYS THEN INCREASE TO 2 TABLETS ONCE A DAY WITH FOOD Referrals Follow up/Referrals: Dario Watt [Primary Care Provider] - See instructions Activity Restrictions/Add. Instructions Additional Instructions/Restrictions: watch for s/s of infection worsen follow up with pcp monitor for fever if worsen or no improvement return Clinical Impressions Clinical Impression: Cellulitis of left leg Instructions Patient Instructions: Cellulitis Discharge ED Provider: Ivan ([facility])Abeba [facility] [place] HPI General Stated complaint: Knot LT knee w/ redness and inflammation Mode of Arrival: Ambulatory Source of Information: Patient Limitations: No Limitations Time Seen by Provider: 12/09/22 10:23 Description of Symptoms (Recalled from Triage Doc. by RN): Lump right above left knee. The lump is red, hot, and swollen to the touch. HEENT Symptoms (Recalled from RN notes): No Resp Symptoms (Recalled from RN notes): No Skin Symptoms (Recalled from RN notes): Yes MS Symptoms (Recalled from RN notes): No Functional Status (Recalled from RN notes): n/a History of Present Illness Provider Complaint: 72 yr old female presents for a red area and swelling to left upper thigh. pt states yesterday she was sitting on her deck and last pm she noticed the raised red area on her upper thigh and seems the redness is worsen Related Data Home Medications Medication Instructions Recorded Confirmed empagliflozin 25 mg tablet 25 mg PO DAILY Diabetes 10/05/22 10/05/22 (Jardiance) felodipine 5 mg tablet,extended 5 mg PO DAILY High blood pressure 10/05/22 10/05/22 release 24 hr glipizide 10 mg tablet 10 mg PO DAILY Diabetes 10/05/22 12/09/22 levothyroxine 125 mcg tablet 125 mcg PO DAILY Hypothyroidism 10/05/22 12/09/22 lisinopril 40 mg tablet 40 mg PO DAILY High blood pressure 10/05/22 12/09/22 nebivolol 20 mg tablet 20 mg PO DAILY High blood pressure 10/05/22 12/09/22 omeprazole 40 mg capsule,delayed 40 mg PO DAILY Acid reflux 10/05/22 12/09/22 release simvastatin 40 mg tablet 40 mg PO DAILY Cholesterol 10/05/22 12/09/22 sitagliptin phosphate 100 mg 100 mg PO DAILY Diabetes 10/05/22 12/09/22 tablet (Januvia) metformin 500 mg tablet,extended 500 mg PO BID Diabetes 12/09/22 12/09/22 release 24 hr Previous Rx's Medication Instructions Recorded hydroxyzine pamoate 50 mg capsule 50 mg PO Q8H PRN itching #14 caps 10/05/22 (Vistaril) cephalexin 500 mg tablet 500 mg PO BID 7 days #14 tabs 12/09/22 Allergies Allergy/AdvReac Type Severity Reaction Status Date / Time No Known Aller
[2022-12-09 10:37] VITALS: BP 158/85; PULSE 79; RESP 19; TEMP 36.8; O2SAT 96
== END 2022-12-09 10:36 | disposition home or self-care (01) ==
PROVIDERS: Emergency Provider Nurse Practitioner Family; PCP Family Medicine
DX: L03.116 Cellulitis of left lower limb (principal)
CPT/HCPCS: 99212; 99214; G0463

== ENCOUNTER → 2022-12-19 13:37 | Outpatient (POV) | payer MEDICARE, SELFPAY | PROVIDERS: Visit Provider Dermatology | DX: Z00.00 Encounter for general adult medical examination without abnormal findings (principal) ==

== ENCOUNTER → 2023-03-06 12:48 | Outpatient (POV) | payer MEDICARE, SELFPAY | PROVIDERS: Visit Provider Dermatology | DX: Z00.00 Encounter for general adult medical examination without abnormal findings (principal) ==

== ENCOUNTER 2023-03-10 08:04 | Emergency (ER) | payer MEDICARE, SELFPAY ==
[2023-03-10 08:04] VITALS: BP 148/67; PULSE 89; RESP 18; TEMP 36.7; O2SAT 92; BMI 43.9
--- NOTE | 2023-03-10 08:23 | EXP.UTC ---
Discharge Plan Disposition Patient Disposition: Home, Self-Care Condition: Good Prescriptions Prescriptions: New prednisone 20 mg tablet 20 mg PO BID Qty: 10 0RF benzonatate 200 mg capsule 200 mg PO TID PRN (Reason: cough) Qty: 30 0RF No Action glipizide 10 mg tablet 10 mg PO DAILY Patient Comments: TAKE 1 TABLET BY MOUTH TWICE DAILY BEFORE MEAL(S) felodipine 5 mg tablet extended release 24 hr 5 mg PO DAILY omeprazole 40 mg capsule,delayed release(DR/EC) 40 mg PO DAILY Patient Comments: TAKE 1 CAPSULE BY MOUTH ONCE DAILY simvastatin 40 mg tablet 40 mg PO DAILY Patient Comments: TAKE 1 TABLET BY MOUTH ONCE DAILY AT NIGHT levothyroxine 125 mcg tablet 125 mcg PO DAILY Patient Comments: TAKE 1 TABLET BY MOUTH ONCE DAILY lisinopril 40 mg tablet 40 mg PO DAILY Patient Comments: TAKE 1 TABLET BY MOUTH ONCE DAILY Januvia 100 mg tablet 100 mg PO DAILY Patient Comments: TAKE 1 TABLET BY MOUTH ONCE DAILY nebivolol 20 mg tablet 20 mg PO DAILY Patient Comments: TAKE 1 TABLET BY MOUTH ONCE DAILY Jardiance 25 mg tablet 25 mg PO DAILY Patient Comments: TAKE 1 TABLET BY MOUTH ONCE DAILY hydroxyzine pamoate [Vistaril] 50 mg capsule 50 mg PO Q8H PRN (Reason: itching) Qty: 14 0RF metformin 500 mg tablet extended release 24 hr 500 mg PO BID Patient Comments: TAKE 1 TABLET BY MOUTH ONCE DAILY FOR 7 DAYS THEN INCREASE TO 2 TABLETS ONCE A DAY WITH FOOD cephalexin [cephalexin] 500 mg tablet 500 mg PO BID 7 Days Qty: 14 0RF Referrals Follow up/Referrals: Dario Watt [Primary Care Provider] - See instructions Activity Restrictions/Add. Instructions Additional Instructions/Restrictions: Rest, fluids Take meds as directed F/U with Dr Watt if not improving Clinical Impressions Clinical Impression: URI (upper respiratory infection), Diabetes mellitus, Hypertension Instructions Patient Instructions: DI for Viral Upper Respiratory Infection -- Adult [facility] [place] HPI General Stated complaint: sore throat, DIEGO, cough Mode of Arrival: Ambulatory Source of Information: Patient Limitations: No Limitations Time Seen by Provider: 03/10/23 08:23 Description of Symptoms (Recalled from Triage Doc. by RN): Complaint of sore throat, cough and headache since Sunday. HEENT Symptoms (Recalled from RN notes): Yes Resp Symptoms (Recalled from RN notes): No Skin Symptoms (Recalled from RN notes): No MS Symptoms (Recalled from RN notes): No Functional Status (Recalled from RN notes): wnl History of Present Illness Provider Complaint: Cough, congestion, sore throat X 4 days. No ear pain. No fever. No nausea or vomiting. No known sick contacts H/O DM, HTN, GERD, hypothyroidism. Onset (ago): day(s) (4) Location: head Severity scale (1-10): 3 Relieving factors: none Exacerbating factors: none Associated symptoms: denies other symptoms Treatments prior to arrival: none Related Data Home Medications Medication Instructions Recorded Confirmed empagliflozin 25 mg tablet 25 mg PO DAILY Diabetes 10/05/22 10/05/22 (Jardiance) felodipine 5 mg tablet,extended 5 mg PO DAILY High blood pressure 10/05/22 10/05/22 release 24 hr glipizide 10 mg tablet 10 mg PO DAILY Diabetes 10/05/22 12/09/22 levothyroxine 125 mcg tablet 125 mcg PO DAILY Hypothyroidism 10/05/22 12/09/22 lisinopril 40 mg tablet 40 mg PO DAILY High blood pressure 10/05/22 12/09/22 nebivolol 20 mg tablet 20 mg PO DAILY High blood pressure 10/05/22 12/09/22 omeprazole 40 mg capsule,delayed 40 mg PO DAILY Acid reflux 10/05/22 12/09/22 release simvastatin 40 mg tablet 40 mg PO DAILY Cholesterol 10/05/22 12/09/22 sitagliptin phosphate 100 mg 100 mg PO DAILY Diabetes 10/05/22 12/09/22 tablet (Januvia) metformin 500 mg tablet,extended 500 mg PO BID Diabetes 12/09/22 12/09/22 release 24 hr Previous Rx's Medication Instructions Re
[2023-03-10 08:29] LABS: UTC Strep Screen (Rapid) Negative (Negative)
[2023-03-10 08:41] VITALS: BP 148/67; PULSE 89; RESP 18; TEMP 36.7; O2SAT 92
== END 2023-03-10 08:42 | disposition home or self-care (01) ==
PROVIDERS: Emergency Provider Physician Assistant; PCP Family Medicine
DX: J06.9 Acute upper respiratory infection, unspecified (principal); B34.9 Viral infection, unspecified; E11.9 Type 2 diabetes mellitus without complications; I10 Essential (primary) hypertension; Z79.84 Long term (current) use of oral hypoglycemic drugs
CPT/HCPCS: 87880; 99212; 99214; G0463

== ENCOUNTER 2023-09-14 12:40 | Outpatient (CLI) | payer MEDICARE, SELFPAY ==
--- NOTE | 2023-09-14 12:44 | MM_ITS ---
PROCEDURE INFORMATION: Exam: MG Bilateral Screening 3D Mammography Exam date and time: 09/14/2023 12:45 PM Age: 72 years old Clinical indication: Screening examination TECHNIQUE: Imaging protocol: Bilateral Screening tomosynthesis and 2D mammography including computer-aided detection (CAD) when performed. COMPARISON: 1. MG MM DIG SCREENING MAMM BI W/CAD 07/27/2022 9:40 AM 2. MG MM DIG SCREENING MAMM BI W/CAD 05/31/2021 7:55 AM FINDINGS: MAMMOGRAPHY: Breast composition: The breasts are almost entirely fatty. Mass: None. Architectural distortion: None. Calcifications: No suspicious calcifications. Asymmetric density: None. Skin thickening: None. Axillary adenopathy: None. IMPRESSION: No mammographic evidence of malignancy. Annual screening is recommended unless otherwise clinically indicated. ASSESSMENT: BI-RADS Category 1: Negative
== END 2023-09-14 23:59 ==
LOC: RAD 12:41
PROVIDERS: PCP Family Medicine; Visit Provider Family Medicine
DX: Z12.31 Encounter for screening mammogram for malignant neoplasm of breast (principal)
CPT/HCPCS: 77063; 77067

== ENCOUNTER 2023-10-17 09:01 | Outpatient (POV) | payer MEDICARE, SELFPAY | END 2023-10-17 23:59 | disposition home or self-care (01) | LOC: SC 09:02 | PROVIDERS: Visit Provider Specialist/Technologist | DX: Z00.00 Encounter for general adult medical examination without abnormal findings (principal) ==

== ENCOUNTER 2024-02-20 23:50 | Emergency (ER) | payer MEDICARE, SELFPAY ==
[2024-02-20 23:51] VITALS: BP 216/111; PULSE 97; RESP 20; TEMP 36.4; O2SAT 97; BMI 38.2
[2024-02-21] VITALS (12 sets, daily range): BP systolic 173–242; BP diastolic 96–119; PULSE 77–92; RESP 17–20; TEMP 36.6; O2SAT 92–99
--- NOTE | 2024-02-21 00:08 | CT_ITS ---
PROCEDURE INFORMATION: Exam: CTA Abdomen and Pelvis With Contrast Exam date and time: 02/21/2024 2:08 AM Age: 73 years old Clinical indication: Abdominal pain; Acute; Additional info: Severe abd and L flank pain, HTN TECHNIQUE: Imaging protocol: Computed tomographic angiography of the abdomen and pelvis with contrast. Exam focused on the arteries. 3D rendering (Not supervised by radiologist): MIP and/or 3D reconstructed images were created by the technologist. Radiation optimization: All CT scans at this facility use at least one of these dose optimization techniques: automated exposure control; mA and/or kV adjustment per patient size (includes targeted exams where dose is matched to clinical indication); or iterative reconstruction. Contrast material: ISOVUE; Contrast volume: 80 ml; Contrast route: INTRAVENOUS (IV); COMPARISON: 1. CT ABDOMEN PELVIS W CON 08/04/2019 5:[address] ANGIO ABDOMEN PELVIS 02/21/2024 2:08 AM FINDINGS: Aorta: No aortic aneurysm. No aortic dissection. Celiac trunk and mesenteric arteries: No occlusion or significant stenosis. Less than 50% stenosis proximal celiac axis. Renal arteries: No occlusion or significant stenosis. Very small accessory left renal artery. Right iliac arteries: No occlusion or significant stenosis. Left iliac arteries: No occlusion or significant stenosis. Liver: There are stable hepatic cysts. Gallbladder and biliary ducts: The gallbladder is absent. There is mild intra and extrahepatic biliary ductal dilation with the common bile duct measuring 10 mm. No intraductal stone is evident. The ductal dilation is new since the study of 08/04/2019. Pancreas: Unremarkable. No mass. No ductal dilation. Spleen: Unremarkable. No splenomegaly. Adrenal glands: There is mild left adrenal hyperplasia. Kidneys and ureters: There is a 4 mm calculus at the level of left UVJ causing very mild hydroureteronephrosis. The right kidney and ureter normal. There is a small exophytic cortical cyst medial left kidney. Stomach and bowel: Unremarkable. No obstruction. No mucosal thickening. Appendix: No evidence of appendicitis. Intraperitoneal space: Unremarkable. No free air. No significant fluid collection. Lymph nodes: Unremarkable. No enlarged lymph nodes. Urinary bladder: Unremarkable. No mass. Reproductive: The uterus is absent. Bones/joints: No acute fracture. Mild degenerative changes of the spine. Soft tissues: Unremarkable. IMPRESSION: 1. Obstructing 4 mm left UVJ calculus causing very mild hydroureteronephrosis. 2. Mild intra and extrahepatic biliary ductal dilation new since the study of 08/04/2019. This may be due to the cholecystectomy status and patient's age however, follow-up nonemergent MRCP is recommended. 3. Other nonemergent findings as noted.
--- NOTE | 2024-02-21 00:08 | CT_ITS ---
PROCEDURE INFORMATION: Exam: CTA Chest With Contrast Exam date and time: 02/21/2024 2:08 AM Age: 73 years old Clinical indication: Pain; Chest pressure; Additional info: Severe abd pain w/ HTN, epigastric pain TECHNIQUE: Imaging protocol: Computed tomographic angiography of the chest with contrast. Exam focused on the arteries. 3D rendering (Not supervised by radiologist): MIP and/or 3D reconstructed images were created by the technologist. Radiation optimization: All CT scans at this facility use at least one of these dose optimization techniques: automated exposure control; mA and/or kV adjustment per patient size (includes targeted exams where dose is matched to clinical indication); or iterative reconstruction. Contrast material: ISOVUE; Contrast volume: 80 ml; Contrast route: INTRAVENOUS (IV); COMPARISON: CR XR CHEST PORTABLE 08/04/2019 4:02 AM FINDINGS: Pulmonary arteries: Normal. No pulmonary emboli. Aorta: Unremarkable. No aortic aneurysm. No aortic dissection. Lungs: There is a calcified granuloma medial right lower lobe. There are minimal dependent atelectatic changes. Pleural spaces: Unremarkable. No pneumothorax. No pleural effusion. Heart: Unremarkable. No cardiomegaly. No pericardial effusion. Lymph nodes: Small calcified right hilar and mediastinal lymph nodes. Bones/joints: Mild degenerative changes of the thoracic spine. No acute fracture. Soft tissues: Unremarkable. Other findings: The abdomen is reported separately. IMPRESSION: 1. No acute arterial finding. 2. Minimal dependent atelectatic changes. 3. Evidence of prior granulomatous exposure.
--- NOTE | 2024-02-21 00:10 | ED_ITS ---
Discharge Plan Disposition Patient Disposition: Home, Self-Care Condition: Good Prescriptions Prescriptions: New tamsulosin 0.4 mg capsule 0.4 mg PO HS Qty: 10 0RF oxycodone 5 mg tablet 5 mg PO Q8H PRN (Reason: pain) Qty: 8 0RF ondansetron 4 mg tablet,disintegrating 4 mg PO Q6H PRN (Reason: nausea and vomiting) Qty: 10 0RF No Action (DME) lancets [Accu-Chek Fastclix Lancet Drum] Misc See Rx Instructions .ROUTE .MEDSUPPLY Qty: 100 Rx Instructions: As directed (DME) Accu-Chek Guide test strips Strip See Rx Instructions .ROUTE .MEDSUPPLY Qty: 10 Rx Instructions: As directed Ozempic 0.25 mg or 0.5 mg (2 mg/3 mL) pen injector SQ losartan 100 mg tablet PO fluticasone propionate [Flonase Allergy Relief] 50 mcg/actuation spray,suspension 2 spray intranasal BID Qty: 16 4RF Rx Instructions: administer into each nostril glipizide 10 mg tablet 10 mg PO DAILY Patient Comments: TAKE 1 TABLET BY MOUTH TWICE DAILY BEFORE MEAL(S) felodipine 5 mg tablet extended release 24 hr 5 mg PO DAILY omeprazole 40 mg capsule,delayed release(DR/EC) 40 mg PO DAILY Patient Comments: TAKE 1 CAPSULE BY MOUTH ONCE DAILY levothyroxine 125 mcg tablet 125 mcg PO DAILY Patient Comments: TAKE 1 TABLET BY MOUTH ONCE DAILY lisinopril 40 mg tablet 40 mg PO DAILY Patient Comments: TAKE 1 TABLET BY MOUTH ONCE DAILY nebivolol 20 mg tablet 20 mg PO DAILY Patient Comments: TAKE 1 TABLET BY MOUTH ONCE DAILY metformin 500 mg tablet extended release 24 hr 500 mg PO BID Patient Comments: TAKE 1 TABLET BY MOUTH ONCE DAILY FOR 7 DAYS THEN INCREASE TO 2 TABLETS ONCE A DAY WITH FOOD Referrals Follow up/Referrals: Dario Watt [Primary Care Provider] - See instructions Justo Gonzalez MD [Staff Physician] - See instructions (4mm stone, believed to pass in ED, needs follow up for re-eval) Activity Restrictions/Add. Instructions Additional Instructions/Restrictions: StoneYour evaluated in the ER. You are appropriate for discharge at this time. Strain your urine to try to catch the kidney stone. Take the prescribed medications as directed. Take the tamsulosin until your pain has resolved or the stone has passed. Take Tylenol or ibuprofen if needed for pain at home, do not exceed the recommended doses on the bottles. If these medications do not control your pain, then take the prescribed oxycodone. Oxycodone can make you constipated and sleepy. Do not drive or operate machinery after taking this medication. Take the prescribed ondansetron if needed for nausea or vomiting. Drink plenty of fluids. Make an appointment with urology for follow-up. Make an appoint with your primary care physician for reevaluation in 2 to 3 days. Return to the ER with new, worsening, or otherwise concerning symptoms. Clinical Impressions Clinical Impression: Ureterolithiasis, Hydronephrosis, Acute flank pain, Vomiting Instructions Patient Instructions: DI for Kidney Stones Print Language Print Language: Gambian Discharge ED Provider: Fahad Cedillo General Adult HPI General Chief complaint: Nausea/Vomiting/Diarrhea Stated complaint: pain L side middle back, vomiting Time Seen by Provider: 02/21/24 00:01 History of Present Illness HPI narrative: 73-year-old female presents to the ER for complaints of abdominal and flank pain. Patient states yesterday she had sudden severe onset of left low back pain. She also is having sharp epigastric abdominal pain. She has a history of hypertension, diabetes. Patient reports her pain was worsened today in the left flank and caused nausea and vomiting. She states over the last week she has had mild dysuria intermittently but no hematuria, no fevers. She denies any chest pain or difficulty breathing. Patient is severely hypertensive on arrival to the ER. She does not report taking any medications for her symptoms. Patient denies any trauma or injury. Related Data Home Medications ?Medication ?Instructions ?Recorded ?Confirmed felodipine 5 mg tablet,extended 5 mg PO DAILY High blood pressure 10/05/22 11/22/23 release 24 hr glipizide 10 mg tablet 10 mg PO DAILY Diabetes 10/05/22 11/22/23 levothyroxine 125 mcg tablet 125 mcg PO DAILY Hypothyroidism 10/05/22 11/22/23 lisinopril 40 mg tablet 40 mg PO DAILY High blood pressure 10/05/22 11/22/23 nebivolol 20 mg tablet 20 mg PO DAILY High blood pressure 10/05/22 11/22/23 omeprazole 40 mg capsule,delayed 40 mg PO DAILY Acid reflux 10/05/22 11/22/23 release metformin 500 mg tablet,extended 500 mg PO BID Diabetes 12/09/22 11/22/23 release 24 hr blood sugar diagnostic (Accu-Chek #10 ea 09/13/23 11/22/23 Guide test strips) lancets (Accu-Chek Fastclix Lancet #100 ea 09/13/23 11/22/23 Drum) losartan 100 mg tablet mg PO 09/13/23 11/22/23 semaglutide 0.25 mg or 0.5 mg (2 mg SQ 09/13/23 11/22/23 mg/3 mL) subcutaneous pen injector (Ozempic) Previous Rx's ?Medication ?Instructions ?Recorded fluticasone propionate 50 2 spray intranasal BID #16 grams 10/17/23 mcg/actuation nasal spray,suspension (Flonase Allergy Relief) ondansetron 4 mg disintegrating 4 mg PO Q6H PRN nausea and 02/21/24 tablet vomiting #10 tabs oxycodone 5 mg tablet 5 mg PO Q8H PRN pain #8 tabs 02/21/24 tamsulosin 0.4 mg capsule 0.4 mg PO HS #10 caps 02/21/24 Allergies Allergy/AdvReac Type Severity Reaction Status Date / Time No Known Allergies Allergy Verified 11/22/23 08:53 [facility] Disclaimer: The information contained in this section may have been updated after the patient was seen, as this information can be updated by other users. Medical History (Updated 02/21/24 @ 03:31 by Fahad Cedillo MD) Impacted cerumen of right ear Chronic dysfunction of both eustachian tubes Mixed hearing loss, bilateral Tinnitus of left ear Family History Other No significant family history Social History Smoking Status: Never smoker second hand exposure: No alcohol intake: never current occupational status: other Travel in the last 8 weeks: None housing: house caffeine: Yes ROS Obtained: Yes All systems reviewed & no additional complaints except as documented Gastrointestinal Gastrointestingal: Reports abdominal pain, nausea and vomiting; Denies constipation, cramping or diarrhea Genitourinary Female Genitourinary: Reports dysuria, Reports flank pain and Denies hematuria Musculoskeletal Musculoskeletal: Reports back pain Physical Exam General General appearance: alert and in no apparent distress Head Head exam: atraumatic and normocephalic Eye Eye exam: Present PERRL and EOMI ENT ENT exam: Present mucous membranes moist Neck Neck exam: Present normal inspection and full ROM Chest Chest inspection: Present symmetric chest wall rise Respiratory Respiratory exam: Present normal lung sounds bilaterally; Absent respiratory distress, wheezes or stridor Cardiovascular Cardiovascular exam: Present regular rate and normal rhythm Abdominal Exam Abdominal exam: Present soft, tenderness and guarding (Voluntary); Absent distention or rebound Abdominal tenderness: Present LLQ, epigastrium and severe Extremities Exam Extremities exam: Present full ROM Back Exam Back exam: Present CVA tenderness (L) and paraspinal tenderness (Left lumbar); Absent tenderness (No midline deformity, tenderness, or step-off) or CVA tenderness (R) Neurological Exam Neurological exam: Present alert and oriented X3; Absent motor sensory deficit Psychiatric Psychiatric exam: Present normal affect and normal mood Skin Skin exam: Present warm and dry Medical Decision Making Medical Records Medical records reviewed: Yes I reviewed the patient's medical records. MR Comment: Patient was evaluated by ENT for chronic eustachian tube dysfunction. She had cerumen disimpaction and progress note from ENT demonstrates patient wished to pursue data virtualization consultant referral at that time. Franko Inquiry Pt receiving controlled substance: Yes Franko was queried for this patient: Yes Reference #:: [id number] Risks and benefits of using a controlled substance: were discussed with pt by me Vital Signs: 02/20/24 23:51 02/21/24 00:00 02/21/24 01:06 Temperature 97.6 F Temperature Source Oral Pulse Rate 92 H Pulse Rate [Right] 97 H Respiratory Rate 20 Blood Pressure 216/111 H 242/119 H Blood Pressure [Right Arm] 216/111 H Blood Pressure Mean 146 Blood Pressure Mean [Right Arm] 146 Blood Pressure Source Blood Pressure Source [Right Arm] Automatic Cuff Blood Pressure Position Blood Pressure Position [Right Arm] Supine 02 Sat by Pulse Oximetry 97 99 Oxygen Delivery Method Room Air 02/21/24 01:07 02/21/24 01:14 02/21/24 01:27 Temperature Temperature Source Pulse Rate 86 79 Pulse Rate [Right] Respiratory Rate Blood Pressure 242/119 H 198/98 H 187/96 H Blood Pressure [Right Arm] Blood Pressure Mean 163 Blood Pressure Mean [Right Arm] Blood Pressure Source Blood Pressure Source [Right Arm] Blood Pressure Position Blood Pressure Position [Right Arm] 02 Sat by Pulse Oximetry 95 92 L Oxygen Delivery Method Room Air 02/21/24 01:30 02/21/24 01:30 02/21/24 01:46 Temperature Temperature Source Pulse Rate 77 77 83 Pulse Rate [Right] Respiratory Rate 20 Blood Pressure 181/96 H 181/96 H 181/96 H Blood Pressure [Right Arm] Blood Pressure Mean Blood Pressure Mean [Right Arm] Blood Pressure Source Automatic Cuff Blood Pressure Source [Right Arm] Blood Pressure Position Supine Blood Pressure Position [Right Arm] 02 Sat by Pulse Oximetry 93 L 92 L 92 L Oxygen Delivery Method Room Air Room Air 02/21/24 02:36 Temperature Temperature Source Pulse Rate 79 Pulse Rate [Right] Respiratory Rate 20 Blood Pressure 187/99 H Blood Pressure [Right Arm] Blood Pressure Mean Blood Pressure Mean [Right Arm] Blood Pressure Source Automatic Cuff Blood Pressure Source [Right Arm] Blood Pressure Position Supine Blood Pressure Position [Right Arm] 02 Sat by Pulse Oximetry 97 Oxygen Delivery Method Room Air Lab Data Lab Results 02/21/24 01:00: Urine Color Yellow, Urine Appearance Clear, Urine pH 7.0, Ur Specific [place] 1.015, Urine Protein Negative, Urine Glucose (UA) Negative, Urine Ketones 1+, Urine Blood 3+, Urine Nitrate Negative, Urine Bilirubin Negative, Urine Urobilinogen 0.2, Ur Leukocyte Esterase Negative, Urine RBC 20- 50, Urine WBC 3-5, Ur Squamous Epith Cells 10-20, Urine Bacteria 1+ 02/21/24 01:15: WBC 5.9, RBC 4.10 L, Hgb 12.5, Hct 37.7, MCV 91.8, MCH 30.4, MCHC 33.1, RDW 13.9, Plt Count 200, MPV 8.3, Neut % (Auto) 58.5, Lymph % (Auto) 29.1, [place] % (Auto) 5.5, Eos % (Auto) 6.0, Baso % (Auto) 0.8, Neut # (Auto) 3.5, Lymph # (Auto) 1.7, [place] # (Auto) 0.3, Eos # (Auto) 0.4, Baso # (Auto) 0.1, PT 10.3, INR 0.91, Sodium 136, Potassium 4.1, Chloride 103, Carbon Dioxide 28, Anion Gap 9.1, BUN 23 H, Creatinine 0.80, Estimated Creat Clear 75, Estimated GFR 70, Est GFR ( Amer) 85, Glucose 117 H, Lactate 1.2, Calcium 10.0, Total Bilirubin 0.7, AST 41 H, ALT 36, Alkaline Phosphatase 74, Troponin I < 0.01, Total Protein 6.7, Albumin 4.0, Globulin 2.7, Albumin/Globulin Ratio 1.5, Lipase 183 02/21/24 03:35: Troponin I < 0.01 02/21/24 01:15 02/21/24 01:15 Orders (Tests/Meds): ED MEDICATIONS Discontinued Medications Generic Name Dose Route Start Last Admin Trade Name Freq PRN Reason Stop Dose Admin Iopamidol 80 ml 02/21/24 02:16 02/21/24 02:17 Iopamidol-370 (76%);100ml Bottle IV 02/21/24 02:17 80 ml ONCE ONE Administration Labetalol HCl 10 mg 02/21/24 01:23 Labetalol 20mg/4ml Syringe IV 02/21/24 01:24 ONCE ONE Labetalol HCl 10 mg 02/21/24 01:05 02/21/24 01:06 Labetalol 20mg/4ml Syringe IV 02/21/24 01:06 10 mg ONCE ONE Administration Morphine Sulfate 4 mg 02/21/24 00:08 02/21/24 00:42 Morphine 4mg/Ml Syringe IV 02/21/24 00:09 4 mg ONCE ONE Administration Ondansetron HCl 4 mg 02/21/24 00:08 02/21/24 00:42 Ondansetron 4mg/2ml Vial IV 02/21/24 00:09 4 mg ONCE ONE Administration Sodium Chloride 50 ml 02/21/24 02:16 02/21/24 02:17 0.9 % Sodium Chloride 50 Ml Vial IV 02/21/24 02:17 50 ml ONCE ONE Administration Sodium Chloride 10 ml 02/21/24 02:16 02/21/24 02:17 Sodium Chloride 0.9% 10ml Syr (Rad Only) IV 02/21/24 02:17 10 ml ONCE ONE Administration Tamsulosin HCl 0.4 mg 02/21/24 03:25 02/21/24 03:31 Tamsulosin 0.4mg Capsule PO 02/21/24 03:26 0.4 mg ONCE ONE Administration ORDERS Category Date Time Status CT angio abdomen pelvis Stat Cat Scan 02/21/24 00:[address] angio chest - dissection Stat Cat Scan 02/21/24 00:08 Completed CBC w/Auto Diff [Complete Blood Count Auto Diff] Stat Lab 02/21/24 01:15 Completed CMP [Comprehensive Metabolic Panel] Stat Lab 02/21/24 01:15 Completed Lactic Acid Stat Lab 02/21/24 01:15 Completed Lipase Stat Lab 02/21/24 01:15 Completed PT INR [Prothrombin Time INR] Stat Lab 02/21/24 01:15 Completed Trop I [Troponin I] Stat Lab 02/21/24 01:15 Completed Troponin I Q3H Lab 02/21/24 03:35 Completed Troponin I Q3H Lab 02/21/24 06:15 Ordered Urinalysis and Microscopic Stat Lab 02/21/24 01:00 Completed Medical Decision Narrative: In summary, this 73-year-old female presents to the emergency department today with abdominal pain, flank pain, nausea, vomiting. On initial evaluation patient is significantly hypertensive but stable, severe tenderness to palpation of the epigastric region, left lower quadrant, left lumbar paraspinal muscles, left CVA tenderness. Differential diagnosis includes but is not limited to ACS, dissection, urinary tract infection, pyelonephritis, renal colic, kidney dysfunction, electrolyte abnormalities, lactic acidosis. Based on these concerns, I ordered serum labs, CT angiography, cardiac workup, urine studies. ECG personally interpreted demonstrates normal sinus rhythm, rate 79, normal MN and QTc, normal axis, no STEMI. Patient received morphine, Zofran for treatment. She also received doses of IV labetalol for hypertension management since she had systolic blood pressure above 200 sustained despite receiving pain medications on arrival. Labs personally reviewed demonstrate no leukocytosis or anemia, normal platelets, PT/INR normal, CMP with trace prerenal azotemia, patient is tolerating oral intake, trace AST elevation, nonspecific and nonactionable, initial troponin undetectably low at less than 0.01, repeat troponin also undetectably low. No findings of evolving MO. CTA chest, abdomen, pelvis were personally interpreted, I do not appreciate aortic dissection, mesenteric ischemia, bowel obstruction. I do appreciate slight left hydronephrosis and hydroureter. Radiology read comments on small left ureteral stone at [facility]. This is consistent with patient's symptoms. It is also consistent with patient having findings of of RBCs in her urine without findings of infection. On reassessment, patient symptoms have dramatically improved. She is resting comfortably. Her blood pressure has also improved after receiving labetalol and has stayed down. I believe her blood pressure was severely elevated secondary to the severe pain she was experiencing at the time of arrival. Given the size and location of stone, it should pass on its own. She was provided a strainer, dose of tamsulosin in the ER, follow-up with urology, and prescriptions for tamsulosin, oxycodone, and Zofran for outpatient management. She does not have elevated creatinine or other findings of kidney dysfunction at this time so she does not require transfer or admission. She is appropriate for discharge at this time and comfortable with this plan. Patient was given instructions on symptomatic management, follow up instructions, and return precautions for the emergency department. Patient indicated understanding and was discharged in stable condition. Critical Care Critical Care Time Critical Care Time: No
[2024-02-21] MEDS: MORPHINE 4MG/ML SYRINGE 4 MG IV (00:42)
[2024-02-21] MEDS: ONDANSETRON 4MG/2ML VIAL 4 MG IV (00:42)
--- NOTE | 2024-02-21 00:55 | ECG_ITS ---
APPROVED REPORT Exam: Resting ECG HR:79 bpm ECG Measurements Heart Rate 79 AXES AR 179 P 62 QRSd 97 QRS -6 QT 371 T 39 QTc 405 Conclusion SINUS RHYTHM POSSIBLE ANTERIOR MYOCARDIAL INFARCTION , PROBABLY OLD [30 ms Q WAVE IN V3/V4, OR R < 0.2 mV IN V4] No stemi Electronically signed by : OSORIO DAVIDSON, 02/21/2024 07:26:21
--- NOTE | 2024-02-21 00:59 | PC.NURSE ---
urine collected and sent to lab
--- NOTE | 2024-02-21 01:01 | PC.NURSE ---
Dr. Cedillo in room to attempt US guided IV.
[2024-02-21 01:04] LABS: Microscopic, Urine URINE MICROSCOPIC (MICROSCOPIC)
[2024-02-21 01:06] LABS: Appearance,Urine CLEAR (Clear); Bilirubin,Urine Negative (Negative); Blood, Urine 3+ (Negative); Color,Urine YELLOW (Yellow); Glucose,Urine (UA) Negative (Negative); Ketones,Urine 1+ (Negative); Leukocyte Esterase,Urine Negative (Negative); Nitrate,Urine Negative (Negative); Protein,Urine Negative (Negative); Specific Gravity, Urine 1.015 (1.005-1.030); Urobilinogen,Urine 0.2 EU/dl (0.2)
[2024-02-21] MEDS: LABETALOL 20MG/4ML SYRINGE 10 MG IV (01:06)
[2024-02-21 01:31] LABS: Bacteria,Urine 1+ /lpf; RBC,Urine 20-50 #/hpf (0-3)
[2024-02-21 01:39] LABS: Basophils # 0.1 K/mm3 (0-0.2); Basophils % 0.8 % (0.1-2.0); Eosinophils # 0.4 K/mm3 (0.0-0.4); Hematocrit 37.7 % (37.0-47.0); Hemoglobin 12.5 g/dL (12.2-16.2); Lymphocytes # 1.7 K/mm3 (0.7-4.5); Lymphocytes % 29.1 % (10-50); Mean Corpuscular HGB Conc 33.1 g/dL (31.8-35.4); Mean Corpuscular Hemoglobin 30.4 pg (27.0-31.2); Mean Corpuscular Volume 91.8 fl (81-99); Mean Platelet Volume 8.3 fl (7.4-10.4); Monocytes # 0.3 K/mm3 (0.1-1.0); Monocytes % 5.5 % (1.7-9.3); Neutrophils # 3.5 K/mm3 (1.8-7.8); Neutrophils % 58.5 % (37.0-80.0); Platelet Count 200 K/mm3 (142-424); Red Cell Distribution Width 13.9 % (11.5-17.5); White Blood Count 5.9 K/mm3 (4.8-10.8)
[2024-02-21 01:50] LABS: INR 0.91 (0.9-1.1); Prothrombin Time 10.3 seconds (10.1-12.5)
[2024-02-21 01:51] LABS: Alanine Aminotransferase 36 U/L (12-78); Albumin/Globulin Ratio 1.5 (1.1-1.8); Alkaline Phosphatase 74 U/L (38-126); Anion Gap 9.1 mEq/L (5-15); Aspartate Amino Transferase 41 U/L (14-36); Bilirubin,Total 0.7 mg/dl (0.2-1.3); Blood Urea Nitrogen 23 mg/dl (7-17); Carbon Dioxide 28 mmol/L (22.0-30.0); Chloride 103 mmol/L (98-107); Creatinine Clearance Estimated 75 mL/min (50-200); Estimated Glomerular Filt Rate 70 ml/min (>60); GFR (African American) 85 ML/MIN (>60); Globulin 2.7 g/dL (1.3-3.2); Glucose 117 mg/dl (74-100); Lactic Acid 1.2 mmol/L (0.7-2.1); Lipase 183 U/L (23-300); Potassium 4.1 mmoL/L (3.5-5.1); Sodium 136 mmol/L (136-145); Total Protein,Serum 6.7 g/dl (6.3-8.2)
[2024-02-21 02:01] LABS: Troponin I < 0.01 ng/ml (0.00-0.034)
[2024-02-21] MEDS: SODIUM CHLORIDE 0.9% 10ML SYR (RAD ONLY) 10 ML IV (02:17)
[2024-02-21] MEDS: 0.9 % SODIUM CHLORIDE 50 ML VIAL IV (02:17)
[2024-02-21] MEDS: IOPAMIDOL-370 (76%);100ML BOTTLE 80 ML IV (02:17)
[2024-02-21] MEDS: TAMSULOSIN 0.4MG CAPSULE 0.4 MG PO (03:31)
[2024-02-21 04:05] LABS: Troponin I < 0.01 ng/ml (0.00-0.034)
== END 2024-02-21 04:16 | disposition home or self-care (01) ==
PROVIDERS: Emergency Provider Emergency Medicine; PCP Family Medicine
DX: N13.0 Hydronephrosis with ureteropelvic junction obstruction (principal); R10.32 Left lower quadrant pain; M54.59 Other low back pain; R11.2 Nausea with vomiting, unspecified; R10.13 Epigastric pain; E11.9 Type 2 diabetes mellitus without complications; I10 Essential (primary) hypertension; Z79.84 Long term (current) use of oral hypoglycemic drugs; Z79.85 Long-term (current) use of injectable non-insulin antidiabetic drugs
CPT/HCPCS: 71275; 74174; 80053; 81001; 83605; 83690; 84484; 85025; 85610; 93005; 96374; 96375; 99285; J2270; J2405; Q9967

== ENCOUNTER 2024-09-16 15:03 | Outpatient (CLI) | payer MEDICARE, SELFPAY ==
--- NOTE | 2024-09-16 15:06 | MM_ITS ---
PROCEDURE INFORMATION: Exam: MG Bilateral Screening 3D Mammography Exam date and time: 09/16/2024 3:11 PM Age: 73 years old Clinical indication: Screening examination TECHNIQUE: Imaging protocol: Bilateral Screening tomosynthesis and 2D mammography including computer-aided detection (CAD) when performed. COMPARISON: 1. MG MM DIG SCREENING MAMM BI W/CAD 09/14/2023 12:45 PM 2. MG MM DIG SCREENING MAMM BI W/CAD 07/27/2022 9:40 AM FINDINGS: MAMMOGRAPHY: Breast composition: There are scattered areas of fibroglandular density. Mass: No suspicious masses. Architectural distortion: None. Calcifications: No suspicious calcifications. Asymmetric density: None. Skin thickening: None. Axillary adenopathy: None. IMPRESSION: No mammographic evidence of malignancy. Annual screening is recommended unless otherwise clinically indicated. ASSESSMENT: BI-RADS Category 1: Negative.
== END 2024-09-16 23:59 | disposition home or self-care (01) ==
LOC: RAD 15:03
PROVIDERS: PCP Family Medicine; Visit Provider Family Medicine
DX: Z12.31 Encounter for screening mammogram for malignant neoplasm of breast (principal)
CPT/HCPCS: 77063; 77067

== ENCOUNTER 2024-12-31 09:12 | Outpatient (CLI) | payer MEDICARE, SELFPAY ==
--- OUTSIDE RECORDS SUMMARY | 2024-12-31 09:15 | XMS_ITS | Data Portability ---
Author Organization [facility] Address [address] [place] [address] Care Team Providers Care Supervisor Cytogenetic Laboratory Name Role Phone GUILLERMINA WATT Primary Care Provider [phone] Assessment Encounter Date Assessment Date Assessment LastModified by Organization Details LastModified Time 07/20/2022 07/20/2022 Discussed with patient that she has developed new Dupuytren's nodule/cords in the right palm in line with the long and small finger. There are no associated contractures. Discussed that treatment could consist of attempted steroid injection around the cords and underlying tendon sheath to see if this provides any relief versus surgical excision. However, patient reports that as she is only symptomatic essentially with driving that it is easy for her to change hands and that the hand does not bother her otherwise. Thus, recommendation was to continue to monitor for now. Should she become more symptomatic she will return the office to discuss additional treatment options at that time. Of note, she does report very occasional mild catching of her left ring finger, but states this is not bothersome or active at this time. Plan to monitor as well and treat as needed should symptoms progress. bdevers Not available 07/20/2022 08:58:05 12/06/2023 12/06/2023 Patient was stable Dupuytren's nodule/cords in the right palm in line with the long and small finger. In regards to her pain, findings seem to be more consistent with an underlying trigger finger as opposed to a symptomatic Dupuytren's nodule. Recommendation was for conservative treatment with a corticosteroid injection for both therapeutic and diagnostic purposes. Should this resolve her pain, this would confirm diagnosis of trigger finger. Should pain persist despite injection, then more likely that the Dupuytren's nodule is causing her symptoms and thus may be appropriate for surgical excision. Follow-up again in 6 weeks, but can call to cancel if doing well at that time. 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 However, currently denies significant pain, thus plan to monitor. Should she develop pain over time we will discuss additional treatment options. bdevers Not available 12/06/2023 13:38:01 01/22/2024 01/22/2024 Patient with resolution of right long trigger finger symptoms. However she has developed progressive Dupuytren's disease in the palm with some associated symptoms related to the palmar nodules with gripping activities. Discussed that treatment would involve palmar fasciectomy. However, symptoms are currently tolerable and patient would prefer to monitor for now. Nmdl-kza-oddspqy medication as needed. Should patient develop recurrent/progres sive symptoms she will contact my office for repeat evaluation. bdevers Not available 01/22/2024 14:55:30 11/27/2024 11/27/2024 Patient with further exacerbation of her right Dupuytren's disease most notably involving the long and now small finger. Is possible that she has underlying trigger digit symptoms as well that are contributing to some of her pain. She has failed conservative treatment and would like to move forward with more definitive surgical intervention. Plan for Dupuytren's fasciectomies long and small finger cords with concurrent trigger finger releases. Patient will be scheduled for right long and small Dupuytren's fasciectomies and trigger digit releases at her convenience. Risk and benefits of the surgical procedure were explained to the patient in clinic today, including but not limited to incomplete symptom relief, recurrence, need for additional procedures, stiffness, damage to surrounding tissues/structure s/nerves/vessels, wound complications, and infection. Patient expressed understanding and all questions were answered to the patient's satisfaction. bdevers Not available 11/28/2024 13:51:01 Plan of Treatment Reminders Order Date Submit Date Provider Last Modified By Organization Details Last Modified Time Details Appointments POST OP GLOBAL 2024 02:15P Violeta ROWLAND PA-C Not available Not available Not available Lab None recorded . Referral None recorded . Procedures None recorded . Surgeries None recorded . Imaging None recorded . Medication Orders None recorded . Patient TargetsNo targets recorded. Patient InstructionsNo instructions recorded. Reason for Referral None Reported. Results Created Date Observation Date Name Description Value Unit Range Abnormal Flag Note LastModifiedBy Organization Detail LastModifiedTime 12/25/19 25 12/24/2024 [facility] surgical SEE BELOW normal Surgi corina Patho logy Repor t NAME: KELLY ANTHONY PATH: [id number] DATE of : 10/26 1 Copy to: Diagn osis: A) Right schulz r fasci a-tariq g finge r: Star tren' s fibro brooks is. B) Right schulz r fasci a-sma ll finge r: Star tren' s fibro brooks is. SOURC E OF SPECI MEN: STAR TREN' S RIGHT , LONG FINGE R SCHULZ R FASCI A STAR TREN' S RIGHT , SCHULZ R FASCI A SMALL FINGE R CLINI [facility] INFOR MATIO N: M72.0 STAR TREN' S DISEA SE OF PALM Gross Descr iptio n: A) Noel castano's name and date of verif ied. Recei cindy in forma tran label ed with the normae nt's name and desig nated rig t schulz r fasci a-tariq g finge r is an unori ented , irreg ular fragm ent of blair-w nick and yello w, fatty fibro membr anous tissu e measu ring 3.0 x 1.1 x 0.9 cm. Secti oning of the speci men revea ls blair-w nick to blair-y ellow , solid /fibr ous, unrem arkab le cut surfa avi. Repre senta tive secti ons are submi tted in a singl e casse tte label ed A1. B) Noel nt's name and date of verif ied. Recei cindy in forma tran label ed with the patie nt's name and desig nated righ t schulz r fasci a-sma ll finge r is an unori ented , irreg ular fragm ent of blair-w nick and yello w, fatty fibro membr anous tissu e measu ring 1.8 x 1.6 x 1.0 cm. Secti oning of the speci men revea ls blair-w nick to blair-y ellow , solid /fibr ous, unrem arkab le cut surfa avi. Repre senta tive secti ons are submi tted in a singl e casse tte label ed B1. SB 12/24 03:34 PM Micro scopi c Descr iptio n: A micro scopi c exami natio n has been perfo rmed and the resul t(s) are as noted above . REBEKAH RICE MD Lilli d Out Date: 12/25 16:33 Page 1 of 1 Not Available [facility] [address] [place] [address], [phone], 12/25/2024 16:33:43 Result Notes None recorded. Problems Name Problem SNOMED Code Status Onset Date Resolution Date Notes Provider Name and Address Organization Details Recorded Time Type 2 diabetes mellitus 79603894 Active 025 Velma Waters [facility] 5 09:36:26 Problem Notes None recorded. Procedures Surgical History Date Name Laterality Status Provider Name and Address Organization Details Recorded Time 5 Op Note completed MIS VARELA MD [address] [place] [address], [phone], [facility] 12/24/2024 15:32:26 4 Injection Trigger Finger Ortho completed MIS VARELA MD [address] [place] [address], [phone], [facility] 12/06/2023 13:35:55 2 OT Therapeutic Exercise completed ADOLFO OLIVARES JR, OTR/L, CHT [address] [place], [address], [facility] 12/01/2021 11:06:22 2 PT Paraffin Bath completed ADOLFO OLIVARES JR, OTR/L, CHT [address] [place], [address], [facility] 12/01/2021 10:55:52 2 OT Therapeutic Exercise completed ADOLFO OLIVARES JR, OTR/L, CHT [address] [place], [address], [facility] 11/24/2021 10:16:55 2 OT Evaluation - Moderate complexity completed ADOLFO OLIVARES JR, OTR/L, CHT [address] [place], [address], [facility] 11/14/2021 13:05:35 2 OT Therapeutic Exercise completed ADOLFO OLIVARES JR, OTR/L, CHT [address] [place], [address], [facility] 11/14/2021 13:17:40 2 Op Note completed MIS VARELA MD [address] [place] [address], [phone], [facility] 11/09/2021 13:26:22 2 Injection Joint/Bursa, Interm completed MIS VARELA MD [address] [place] [address], [address], [facility] 10/27/2021 13:37:32 2 Injection Trigger Finger Ortho completed MIS VARELA MD [address] [place] [address], [phone], [facility] 09/29/2021 12:31:57 Imaging Results None recorded. Procedure Notes None recorded. Medical Equipment None Reported. Allergies No known drug allergies Medications Name Sig Start Date Stop Date Status Note LastModified by Organization Details LastModified Time hydrocodone 5 mg-acetamin ophen 325 mg tablet Take 1 tablet(s) EVERY 4-6 HOURS by oral route, as needed for severe post surgical pain 2024 active Not Available Not Available Not Avai lable omeprazole 40 mg capsule,del ayed release Take 1 capsule every day by oral route. active Not Available Not Available No t Available tramadol 50 mg tablet TAKE 1 TABL PO Q 4-6 HRS PRN FOR SEVERE POST SURGICAL PAIN 11/24 completed Not Available Not Available Not Available meloxicam 7.5 mg tablet TAKE 1 TAB PO QD WITH FOOD REGARDLES S OF FABIANOL LEVEL FOR 1 WEEK, THEN TAKE ONLY PRN FOR PAIN RELIEF THEREAFTE R 2024 active Not Available Not Available Not Avai lable Neurontin 100 mg capsule TAKE 1 CAPSULE PO QHS FOR 1 WEEK 2024 active Not Available Not Available Not Avai lable metoprolol tartrate 50 mg tablet Take 1 tablet twice a day by oral route. active Not Available Not Available No t Available hydrochloro thiazide 25 mg tablet Take 1 tablet every day by oral route. active Not Available Not Available No t Available pioglitazon e 30 mg tablet Take 1 tablet every day by oral route. 11/27 completed Not Available Not Available Not Available lisinopril 40 mg tablet Take 1 tablet every day by oral route. active Not Available Not Available No t Available glipizide 5 mg tablet Take 1 tablet twice a day by oral route. 11/27 completed Not Available Not Available Not Available metformin active Not Available Not Mindy ilable Not Available levothyroxi ne 125 mcg capsule Take 1 capsule every day by oral route. active Not Available Not Available No t Available Ozempic 11/27 completed Not Available Not Available Not Available Vitals Date Recorded Body height Body mass index (BMI) Body weight Provider Name and Address Organization Details Last Updated DateTime 07/20/2022 158.75 cm 45.5 kg/m2 771024.87 g Maggi Kim [facility] 07/20/2022 08:43:23 Date Recorded Body height Body mass index (BMI) Body weight Provider Name and Address Organization Details Last Updated DateTime 11/27/2024 158.75 cm 36.5 kg/m2 08380.25 g Velma Bellkins [facility] 11/27/2024 09:00:52 Date Recorded Body weight Provider Name an d Address Organization Details Last Updated DateTime 12/06/2023 183233.87 g Camryn Landin [facility] 12/06/2023 13:16:01 Social History None recorded. Functional Status None recorded. Mental Status None recorded. Family History Nothing Reported. Medical History Condition Response Diabetes Y Bleeding Disorder N Blood Thinners N Heart Conditions N Sleep Apnea N Blood Clot N High Cholesterol Y Liver Disease N Included as Review of Systems Y Heart Attack ([place]) N Hypertension Y Kidney Disease N Gynecological HistoryNo gynecological history recorded. Obstetrics History GPAL:G 0 P 0 0 0 0 Past Encounters Encounter ID Performer Location Encounter Start Date Encounter Closed Date Diagnosis/Indication Diagnosis SNOMED-CT Code Diagnosis ICD10 Code Diagnosis Note [id number] MIS VARELA MD [facility] [address] [address] 09/29/2021 08:34:22 09/29/2021 10:00:05 Acquired trigger finger 2906561 M65.341 M65.322 M65.342 M65.352 -Right ring trigger finger (CSI: 09/29/2021) -Left index trigger finger (CSI: 09/29/2021) -Possible left ring trigger finger-Pos sible left small trigger finger Osteoarthr osis of the carpometacarpal joint of the thumb 26367487 M18.11 M18.12 -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- Right Eaton stage II/III CMC joint arthritis Dupuytren' s disease of palm 656351261 M72.0 Dupuytren' s disease in the palms with no associated contractur es [id number] MIS VARELA MD [facility] [address] [place] [address] 10/27/2021 13:01:41 10/27/2021 13:39:22 Acquired trigger finger 2920295 M65.341 M65.322 M65.342 M65.352 -Right ring trigger finger (CSI: 09/29/2021) -Left index trigger finger (CSI: 09/29/2021) -currently resolved-P ossible left ring trigger finger-Pos sible left small trigger finger Osteoarthr osis of the carpometacarpal joint of the thumb 37337583 M18.11 M18.12 -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 (CSI: 10/27/2021) -Right Eaton stage II/III CMC joint arthritis (CSI: 10/27/2021) Dupuytren' s disease of palm 876500843 M72.0 Dupuytren' s disease in the palms with no associated contractur es [id number] MIS VARELA MD SURGERY SCHEDULE [address] [place] [address] 11/09/2021 08:23:08 11/09/2021 08:24:09 [id number] ADOLFO OLIVARES JR, OTR/L, CHT PHYSICAL THERAPY / HAND THERAPY [facility] [address] [place] [address] 11/14/2021 12:06:24 11/14/2021 13:21:43 Dupuytren's contracture of finger 602546696 M72.0 Trigger fi nger of right hand 0343076976 3546341 M65.30 [id number] RASHAD ROWLAND PA-C [facility] [address] [place] [address] 11/24/2021 08:59:29 11/24/2021 09:54:19 Acquired trigger finger 9878142 M65.341 M65.322 M65.342 M65.352 -Left index trigger finger (CSI: 09/29/2021) -currently resolved-P ossible left ring trigger finger-Pos sible left small trigger finger s/p Right hand palmar Dupuytren' s fasciectom y; Right ring trigger finger release (DOS: 11/09/21) Osteoarthr osis of the carpometacarpal joint of the thumb 72773206 M18.11 M18.12 -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 (CSI: 10/27/2021) -Right Eaton stage II/III CMC joint arthritis (CSI: 10/27/2021) Dupuytren' s disease of palm 401974078 M72.0 Dupuytren' s disease in the palms with no associated contractur es s/p Right hand palmar Dupuytren' s fasciectom y; Right ring trigger finger release (DOS: 11/09/21) Postoperative care 94571 9007 Z48.89 s/p Right hand palmar Dupuytren' s fasciectom y; Right ring trigger finger release (DOS: 11/09/21) [id number] ADOLFO OLIVARES JR, OTR/L, CHT PHYSICAL THERAPY / HAND THERAPY [facility] [address] [place] [address] 11/24/2021 08:59:55 11/24/2021 13:13:01 Dupuytren's contracture of finger 985173092 M72.0 Trigger fi nger of right hand 1016253601 8649152 M65.30 [id number] ADOLFO OLIVARES JR, OTR/L, CHT PHYSICAL THERAPY / HAND THERAPY [facility] [address] [address] 12/01/2021 10:01:04 12/01/2021 11:33:43 Dupuytren's contracture of finger 681221231 M72.0 Trigger fi nger of right hand 9951917185 9429750 M65.30 [id number] MIS VARELA MD [facility] [address] [place] [address] 12/22/2021 08:49:50 12/22/2021 09:46:28 Postoperative care 362161469 Z48.89 6 weeks s/p Right hand palmar Dupuytren' s fasciectom y; Right ring trigger finger release (DOS: 11/09/21) Acquired t risk developer finger 7582139 M65.341 M65.322 M65.342 M65.352 -Left index trigger finger (CSI: 09/29/2021) -currently resolved-P ossible left ring trigger finger-Pos sible left small trigger finger Previously s/p Right hand palmar Dupuytren' s fasciectom y; Right ring trigger finger release (DOS: 11/09/21) Osteoarthr osis of the carpometacarpal joint of the thumb 69220455 M18.11 M18.12 -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 (CSI: 10/27/2021) -Right Eaton stage II/III CMC joint arthritis (CSI: 10/27/2021) Dupuytren' s disease of palm 887731879 M72.0 Dupuytren' s disease in the palms with no associated contractur es s/p Right hand palmar Dupuytren' s fasciectom y; Right ring trigger finger release (DOS: 11/09/21) [id number] MIS VARELA MD [facility]I [facility] [address] [place] [address] 07/20/2022 08:36:46 07/20/2022 08:55:43 Postoperative care 128531421 Z48.89 Previously s/p Right hand palmar Dupuytren' s fasciectom y; Right ring trigger finger release (DOS: 11/09/21) Acquired t risk developer finger 2554103 M65.341 M65.322 M65.342 M65.352 -Left index trigger finger (CSI: 09/29/2021) -currently resolved-P ossible left ring trigger finger-Pos sible left small trigger finger Previously s/p Right hand palmar Dupuytren' s fasciectom y; Right ring trigger finger release (DOS: 11/09/21) Osteoarthr osis of the carpometacarpal joint of the thumb 00086548 M18.11 M18.12 -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 (CSI: 10/27/2021) -Right Eaton stage II/III CMC joint arthritis (CSI: 10/27/2021) Dupuytren' s disease of palm 374787166 M72.0 Dupuytren' s disease in the palms with no associated contractur es Previously s/p Right hand palmar Dupuytren' s fasciectom y; Right ring trigger finger release (DOS: 11/09/21) [id number] MIS VARELA MD [facility] [address] [place] [address] 12/06/2023 12:39:19 12/06/2023 13:31:27 Dupuytren's disease of palm 650222474 M72.0 Dupuytren' s disease in the palms with no associated contractur es Previously s/p Right hand palmar Dupuytren' s fasciectom y; Right ring trigger finger release (DOS: 11/09/21) Postoperative care 00043 9007 Z48.89 Previously s/p Right hand palmar Dupuytren' s fasciectom y; Right ring trigger finger release (DOS: 11/09/21) Acquired t risk developer finger 8734053 M65.331 -Right long trigger finger (CSI: 11/06/2023) -Left index trigger finger (CSI: 09/29/2021) -currently resolved-P ossible left ring trigger finger-Pos sible left small trigger finger Previously s/p Right hand palmar Dupuytren' s fasciectom y; Right ring trigger finger release (DOS: 11/09/21) Osteoarthr osis of the carpometacarpal joint of the thumb 13451214 M18.11 M18.12 -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 (CSI: 10/27/2021) -Right Eaton stage II/III CMC joint arthritis (CSI: 10/27/2021) [id number] MIS VARELA MD [facility] [address] [place] [address] 01/22/2024 09:32:08 01/22/2024 11:18:35 Dupuytren's disease of palm 934749309 M72.0 Dupuytren' s disease in the palms with no associated contractur es Previously s/p Right hand palmar Dupuytren' s fasciectom y; Right ring trigger finger release (DOS: 11/09/21) Acquired t risk developer finger 3610080 M65.331 -Right long trigger finger (CSI: 11/06/2023) -currently resolved-L eft index trigger finger (CSI: 09/29/2021) -currently resolved-P ossible left ring trigger finger-Pos sible left small trigger finger Previously s/p Right hand palmar Dupuytren' s fasciectom y; Right ring trigger finger release (DOS: 11/09/21) Postoperative care 25326 9007 Z48.89 Previously s/p Right hand palmar Dupuytren' s fasciectom y; Right ring trigger finger release (DOS: 11/09/21) Osteoarthr osis of the carpometacarpal joint of the thumb 87928232 M18.11 M18.12 -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 (CSI: 10/27/2021) -Right Eaton stage II/III CMC joint arthritis (CSI: 10/27/2021) [id number] MIS VARELA MD ORTHOPEDI [address] [place] [address] 11/27/2024 08:09:41 11/27/2024 09:40:50 Dupuytren's disease of palm 753711849 M72.0 Dupuytren' s disease in the palms with no associated contractur es Previously s/p Right hand palmar Dupuytren' s fasciectom y; Right ring trigger finger release (DOS: 11/09/21) Acquired t risk developer finger 8639417 M65.331 M65.351 -Right long trigger finger (CSI: 11/06/2023) -Right small trigger finger-Lef t index trigger finger (CSI: 09/29/2021) -currently resolved-P ossible left ring trigger finger-Pos sible left small trigger finger Previously s/p Right hand palmar Dupuytren' s fasciectom y; Right ring trigger finger release (DOS: 11/09/21) Postoperative care 62122 9007 Z48.89 Previously s/p Right hand palmar Dupuytren' s fasciectom y; Right ring trigger finger release (DOS: 11/09/21) Osteoarthr osis of the carpometacarpal joint of the thumb 38845048 M18.11 M18.12 -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 (CSI: 10/27/2021) -Right Eaton stage II/III CMC joint arthritis (CSI: 10/27/2021) [id number] MIS VARELA MD SURGERY SCHEDULE [address] [place] [address] 12/24/2024 06:53:49 12/24/2024 06:54:14 Health Concerns Section Related Observation LastModified by Organization Detai ls LastModified Time None Recorded Concern Status LastModified by Organization Details LastModified Time None Recorded Advance Directives Directive None Recorded Payers Insurance Date Sequence Insurance Name Policy Number Policy Garibay Covered Member ID Garibay Member ID Guarantor Name 12/30/2024 1 [employer]-[place]: [employer] [place] [employer] [place] (MEDICARE REPLACEMENT HMO) [id number] Kelly Albright [id number] Kelly Albright Notes Date Note Type Note Provider Name and Address Organization Details Recorded Time 07/20/2022 text/html Patient presents back today for evaluation of new issues involving her right hand. She now reports new nodules in the palms in line with the long and small fingers. These are only sore when gripping the steering well on occasion and occasionally when using her fork, otherwise she reports no associated symptoms. Primary Care Physician: Dr Watt Hand dominance: RightLocation: Right Hand Pain level: 5 /10 Recent Surgery: YesProcedure:-Right hand palmar Dupuytren's fasciectomy-Right ring trigger finger releaseDate of surgery: 11-09-2021 Duration: 6 week(s) Previous upper extremity surgery? NoCurrently employed?: RetiredAre they currently working? No Is this injury associated with a Workers Compensation claim? No Pt reports that her that she has a knot in her LF and SF of the R hand. She had pain with finger flexion and gripping the steering wheel of her car, 5/10 pain. MIS VARELA MD [address] [place] [address] [place], [address], [facility] 07/20/2022 08:58:08 12/06/2023 text/html Patient reports back today for evaluation of her right hand Dupuytren's nodule in the palm in line with the long finger. She reports discomfort with gripping activities such as holding a steering wheel. Primary Care Physician: Dr Watt Hand dominance: RightLocation: Right Hand Pain level: 0 /10 Recent Surgery: YesProcedure:-Right hand palmar Dupuytren's fasciectomy-Right ring trigger finger releaseDate of surgery: 11-09-2021 Previous upper extremity surgery? NoCurrently employed?: RetiredMsLars Albright is here for recheck of rt hand. She stated overall she is doing well. Still having pain and tightness throughout the day. MIS VARELA MD [address] [place] [address] [place], [address], [facility] 12/06/2023 13:38:23 01/22/2024 text/html Patient returns to the clinic today for a follow-up evaluation. Reports that corticosteroid injection on 12/06/2023 was very beneficial and resolved symptoms for her right ring trigger finger. However, reports continued soreness around the palmar nodule around the long finger as well as development of a more noticeable cord in the fourth webspace extending along the ulnar border of the ring finger and reports intermittent focal soreness at both locations with gripping activities. Primary Care Physician: Dr Watt Hand dominance: RightLocation: Right Hand Pain level: 0 /10 Recent Surgery: YesProcedure:-Right hand palmar Dupuytren's fasciectomy-Right ring trigger finger releaseDate of surgery: 11-09-2021 Previous upper extremity surgery? NoCurrently employed?: RetiredMsLars Albright is here for a recheck. She received right long flexor tendon sheath csi last visit on 12/06/2023 which was very beneficial. MIS VARELA MD [address] [place], [address], [facility] 01/22/2024 14:55:33 11/27/2024 text/html Patient returns to the clinic today for evaluation of progressive bilateral hand pain. Reports ongoing pain associated with her Dupuytren's disease in the right hand especially with gripping activities. Consult requested by: selfPrimary Care Physician: Dr. Guillermina Watt Hand dominance: RightLocation: Bilateral Hand Pain level: 10 /10 Date of injury:Duration: Recent Surgery: NoProcedure:Date of surgery:Surgeon(If Known): In office procedure? Yes-Right long trigger finger (CSI: 11/06/2023)-Left index trigger finger (CSI: 09/29/2021)-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 (CSI: 10/27/2021)-Right Eaton stage II/III CMC joint arthritis (CSI: 10/27/2021) Previous upper extremity surgery? YesProcedure: -Right hand palmar Dupuytren's fasciectomy-Right ring trigger finger releaseApproximate date of surgery: 11/09/2024Surgeon (if known): Dr. VarelaHave you or an immediate family member ever seen our hand surgeons before? Yes Currently employed?: Retired Patient arrived in: [employer] Strength: right: left: MIS VARELA MD [address] [place], [address], [facility] 11/28/2024 13:51:31 OBGyn Episode No OBEpisode recorded.
--- NOTE | 2024-12-31 09:16 | XR_ITS ---
FINAL REPORT CLINICAL HISTORY: SCREENING COMPARISON: None FINDINGS: Using L1-4, the bone mineral density of the spine is 1.309 g/cm2, corresponding to T-score of 2.4. Using the left hip, the bone mineral density of the femoral neck is 0.83 g/cm2, corresponding to a T-score of 0.3. Using the right hip, the bone mineral density of the femoral neck is 1.095 g/cm2, corresponding to a T-score of 1.3. NOTE: T-score: Standard deviation compared with peak bone mass of young adult mean. *Following the recommendations of the International Society of Bone densitometry, classification of hip BMD is based on the lower of two T-scores; total hip or femoral neck. IMPRESSION: The bone mineral density of the bilateral hips and lumbar spine is normal. Reviewed, Interpreted and Dictated by Ricky Huynh MD Transcribed by Lin Res[employer]iz Authenticated and [facility]
--- OUTSIDE RECORDS SUMMARY | 2024-12-31 09:16 | XMS_ITS | Data Portability ---
Author Organization [place] - [facility] - [place] & DANDRE Barton ADMIN Address [address] [place] [id number] Assessment No assessment recorded. Plan of Treatment Reminders Order Date Submit Date Provider Last Modified By Organization Details Last Modified Time Details Appointments None record ed. Lab None record ed. Referral None record ed. Procedures None record ed. Surgeries None record ed. Imaging None record ed. Medication Orders None record ed. Patient TargetsNo targets recorded. Patient InstructionsNo instructions recorded. Reason for Referral None Reported. Results Created Date Observation Date Name Description Value Unit Range Abnormal Flag Note LastModifiedBy Organization Detail LastModifiedTime 01/07/20 24 01/07/2024 CBC AUTO NO DIFF (HEMO GRAM) WBC 6.3 K/uL 4.0-10 .5 Not Available [facility] ([facility]) [address] [place], [address], 01/07/2024 13:48:21 01/07/20 24 01/07/2024 CBC AUTO NO DIFF (HEMO GRAM) RBC 4.2 M/mm3 4.2-6. 4 Not Available [facility] ([facility]) [address] [facility], [place], [address], 01/07/2024 13:48:21 01/07/20 24 01/07/2024 CBC AUTO NO DIFF (HEMO GRAM) HGB 12.4 gm/dL 12.5-1 6.0 low Not Available [facility] ([facility]) [address] [facility], [place], [address], 01/07/2024 13:48:21 01/07/20 24 01/07/2024 CBC AUTO NO DIFF (HEMO GRAM) HCT 36.9 % 37.0-4 7.0 low Not Available [facility] ([facility]) [address], [place], [address], 01/07/2024 13:48:21 01/07/20 24 01/07/2024 CBC AUTO NO DIFF (HEMO GRAM) MCV 87.2 fL 78-100 Not Available [facility] ([facility]) [address], [place], [address], 01/07/2024 13:48:21 01/07/20 24 01/07/2024 CBC AUTO NO DIFF (HEMO GRAM) MCH 29.3 pg 27-31 Not Available [facility] ([facility]) [address], [place], [address], 01/07/2024 13:48:21 01/07/20 24 01/07/2024 CBC AUTO NO DIFF (HEMO GRAM) MCHC 33.6 g/dL 32-36 Not Available [facility] ([facility]) [address], [place], [address], 01/07/2024 13:48:21 01/07/20 24 01/07/2024 CBC AUTO NO DIFF (HEMO GRAM) RDW 12.6 % 11.5-1 4.0 Not Available [facility] ([facility]) [address] , [place], [address], 01/07/2024 13:48:21 01/07/20 24 01/07/2024 CBC AUTO NO DIFF (HEMO GRAM) platelet count 220 K/uL 150-45 0 Not Available [facility] ([facility]) [address] [place], [address], 01/07/2024 13:48:21 01/07/20 24 01/07/2024 CBC AUTO NO DIFF (HEMO GRAM) MPV 9.8 fL 6-9.5 high Not Available [facility] ([facility]) [address] [place], [address], 01/07/2024 13:48:21 01/07/20 24 01/07/2024 CBC AUTO NO DIFF (HEMO GRAM) manual differential NO Not Available [facility] ([facility]) [address] , [place], [address], 01/07/2024 13:48:21 01/07/20 24 01/07/2024 BASIC METAB OLIC PANEL sodium 141 mmol/ L 136-14 5 Not Available [facility] ([facility]) [address] , [place], [address], 01/07/2024 14:07:04 01/07/20 24 01/07/2024 BASIC METAB OLIC PANEL potassium 3.7 mmol/ L 3.6-5. 0 Not Available [facility] ([facility]) [address] , [place], [address], 01/07/2024 14:07:04 01/07/20 24 01/07/2024 BASIC METAB OLIC PANEL chloride 104 mmol/ L 98-107 Not Available [facility] ([facility]) [address] , [place], [address], 01/07/2024 14:07:04 01/07/20 24 01/07/2024 BASIC METAB OLIC PANEL carbon dioxide 28.7 mmol/ L 21.0-3 2.0 Not Available [facility] ([facility]) [address] , [place], [address], 01/07/2024 14:07:04 01/07/20 24 01/07/2024 BASIC METAB OLIC PANEL anion gap 12.0 Not Available [facility] ([facility]) [address] , [place], [address], 01/07/2024 14:07:04 01/07/20 24 01/07/2024 BASIC METAB OLIC PANEL glucose 144 mg/dL 70-120 high Not Available [facility] ([facility]) [address], [place], [address], 01/07/2024 14:07:04 01/07/20 24 01/07/2024 BASIC METAB OLIC PANEL BUN 17 mg/dL 7-18 Not Available [facility] ([facility]) [address], [place], [address], 01/07/2024 14:07:04 01/07/20 24 01/07/2024 BASIC METAB OLIC PANEL creatinine 0.9 mg/dL 0.6-1. 3 Not Available [facility] ([facility]) [address], [place], [address], 01/07/2024 14:07:04 01/07/20 24 01/07/2024 BASIC METAB OLIC PANEL glomerular filtration rate TNP mlper min 60- TEST NOT PERFO RMED GFR has only been valid ated from 18 to 70 years of age. Not Available [facility] ([facility]) [address] , [place], [address], 01/07/2024 14:07:04 01/07/20 24 01/07/2024 BASIC METAB OLIC PANEL calcium 9.5 mg/dL 8.5-10 .5 Not Available [facility] ([facility]) [address] [place], [address], 01/07/2024 14:07:04 03/17/20 24 03/17/2024 CBC NO DIFF (HEMO GRAM) WBC 6.1 K/uL 4.0-10 .5 Not Available [facility] ([facility]) [address], [place], [address], 03/17/2024 09:59:51 03/17/20 24 03/17/2024 CBC NO DIFF (HEMO GRAM) RBC 4.6 M/mm3 4.2-6. 4 Not Available [facility] ([facility]) [address], [place], [address], 03/17/2024 09:59:51 03/17/20 24 03/17/2024 CBC NO DIFF (HEMO GRAM) HGB 13.5 gm/dL 12.5-1 6.0 Not Available [facility] ([facility]) [address], [place], [address], 03/17/2024 09:59:51 03/17/20 24 03/17/2024 CBC NO DIFF (HEMO GRAM) HCT 40.7 % 37.0-4 7.0 Not Available [facility] ([facility]) [address], [place], [address], 03/17/2024 09:59:51 03/17/20 24 03/17/2024 CBC NO DIFF (HEMO GRAM) MCV 88.5 fL 78-100 Not Available [facility] ([facility]) [address], [place], [address], 03/17/2024 09:59:51 03/17/20 24 03/17/2024 CBC NO DIFF (HEMO GRAM) MCH 29.3 pg 27-31 Not Available [facility] ([facility]) [address] [place], [address], 03/17/2024 09:59:51 03/17/20 24 03/17/2024 CBC NO DIFF (HEMO GRAM) MCHC 33.2 g/dL 32-36 Not Available [facility] ([facility]) [address] [place], [address], 03/17/2024 09:59:51 03/17/20 24 03/17/2024 CBC NO DIFF (HEMO GRAM) RDW 12.3 % 11.5-1 4.0 Not Available [facility] ([facility]) [address] [place], [address], 03/17/2024 09:59:51 03/17/20 24 03/17/2024 CBC NO DIFF (HEMO GRAM) platelet count 214 K/uL 150-45 0 Not Available [facility] ([facility]) [address], [place], [address], 03/17/2024 09:59:51 03/17/20 24 03/17/2024 CBC NO DIFF (HEMO GRAM) MPV 10.0 fL 6-9.5 high Not Available [facility] ([facility]) [address], [place], [address], 03/17/2024 09:59:51 03/17/20 24 03/17/2024 CBC NO DIFF (HEMO GRAM) manual differential NO Not Available [facility] ([facility]) [address] , [place], [address], 03/17/2024 09:59:51 03/17/20 24 03/17/2024 BASIC METAB OLIC PANEL sodium 139 mmol/ L 136-14 5 Not Available [facility] ([facility]) [address] , [place], [address], 03/17/2024 10:48:54 03/17/20 24 03/17/2024 BASIC METAB OLIC PANEL potassium 3.8 mmol/ L 3.6-5. 0 Not Available [facility] ([facility]) [address] , [place], [address], 03/17/2024 10:48:54 03/17/20 24 03/17/2024 BASIC METAB OLIC PANEL chloride 102 mmol/ L 98-107 Not Available [facility] ([facility]) [address] , [place], [address], 03/17/2024 10:48:54 03/17/20 24 03/17/2024 BASIC METAB OLIC PANEL carbon dioxide 27.9 mmol/ L 21.0-3 2.0 Not Available [facility] ([facility]) [address] [place], [address], 03/17/2024 10:48:54 03/17/20 24 03/17/2024 BASIC METAB OLIC PANEL anion gap 12.9 Not Available [facility] ([facility]) [address] [place], [address], 03/17/2024 10:48:54 03/17/20 24 03/17/2024 BASIC METAB OLIC PANEL glucose 110 mg/dL 70-120 Not Available [facility] ([facility]) [address] , [place], [address], 03/17/2024 10:48:54 03/17/20 24 03/17/2024 BASIC METAB OLIC PANEL BUN 12 mg/dL 7-18 Not Available [facility] ([facility]) [address] [place], [address], 03/17/2024 10:48:54 03/17/20 24 03/17/2024 BASIC METAB OLIC PANEL creatinine 0.8 mg/dL 0.6-1. 3 Not Available [facility] ([facility]) [address] [place], [address], 03/17/2024 10:48:54 03/17/20 24 03/17/2024 BASIC METAB OLIC PANEL glomerular filtration rate TNP mlper min 60- TEST NOT PERFO RMED GFR has only been valid ated from 18 to 70 years of age. Not Available [facility] ([facility]) [address] [place], [address], 03/17/2024 10:48:54 03/17/20 24 03/17/2024 BASIC METAB OLIC PANEL calcium 9.9 mg/dL 8.5-10 .5 Not Available [facility] ([facility]) [address], [place], [address], 03/17/2024 10:48:54 Result Notes None recorded. Procedures Surgical History Date Name Laterality Status Provider Name and Address Organization Details Recorded Time 03/20/20 excision of lesion of skin completed Landon Quiñonez [facility] & [place] 04/03/2024 08:19:51 Cholecystectomy completed Landon Quiñonez [facility] & [place] 01/07/2024 09:21:08 Imaging Results None recorded. Procedure Notes None recorded. Medical Equipment None Reported. Allergies No known drug allergies Medications Name Sig Start Date Stop Date Status Note LastModified by Organization Details LastModified Time promethazine -DM 6.25 mg-15 mg/5 mL oral syrup TAKE 5 ML BY MOUTH 4 TIMES DAILY NEEDED FOR COUGH active Not Available Not Available No t Available benzonatate 200 mg capsule TAKE 1 CAPSULE BY MOUTH THREE TIMES DAILY NEEDED FOR COUGH active Not Available Not Available No t Available glipizide 10 mg tablet TAKE 1 TABLET BY MOUTH TWICE DAILY BEFORE MEAL(S) active Not Available Not Available No t Available prednisone 20 mg tablet TAKE 2 TABLETS BY MOUTH ONCE DAILY active Not Available Not Available No t Available felodipine ER 5 mg tablet,exten ded release 24 hr TAKE 1 TABLET BY MOUTH ONCE DAILY active Not Available Not Available No t Available omeprazole 40 mg capsule,sis yed release TAKE 1 CAPSULE BY MOUTH ONCE DAILY active Not Available Not Available No t Available ondansetron 8 mg disintegrati ng tablet DISSOLVE 1 TABLET IN MOUTH EVERY 8 HOURS NEEDED FOR NAUSEA FOR VOMITING active Not Available Not Available No t Available tamsulosin 0.4 mg capsule TAKE 1 CAPSULE BY MOUTH AT BEDTIME NIGHTLY active Not Available Not Available No t Available levothyroxin e 125 mcg tablet TAKE 1 TABLET BY MOUTH ONCE DAILY active Not Available Not Available No t Available nystatin 100,000 unit/gram topical cream active Not Available Not Available Not Available hydrocortiso ne 2.5 % topical cream active Not Available Not Available Not Available azelastine 137 mcg (0.1 %) nasal spray active Not Available Not Available Not Available brompheniram ine-pseudoep hedrine-DM 2 mg-30 mg-10 mg/5 mL oral syrup TAKE 5 ML BY MOUTH 4 TIMES DAILY NEEDED FOR COUGH active Not Available Not Available No t Available lisinopril 40 mg tablet TAKE 1 TABLET BY MOUTH ONCE DAILY active Not Available Not Available No t Available ondansetron 4 mg disintegrati ng tablet DISSOLVE 1 TABLET IN MOUTH EVERY 6 HOURS NEEDED FOR NAUSEA AND VOMITING active Not Available Not Available No t Available losartan 100 mg tablet TAKE 1 TABLET BY MOUTH ONCE DAILY active Not Available Not Available No t Available fluticasone propionate 50 mcg/actuatio n nasal spray,suspen tanisha active Not Available Not Available Not Available metformin ER 500 mg tablet,exten ded release 24 hr TAKE 1 TABLET BY MOUTH ONCE DAILY FOR 7 DAYS, THEN INCREASE 2 TABS ONCE DAILY WITH FOOD active Not Available Not Available No t Available clotrimazole 1 % topical cream APPLY CREAM TOPICALLY TO AFFECTED AREA EVERY 12 HOURS DIRECTED active Not Available Not Available No t Available oxycodone 5 mg tablet TAKE 1 TABLET BY MOUTH EVERY 8 HOURS NEEDED FOR PAIN active Not Available Not Available No t Available levocetirizi ne 5 mg tablet active Not Available Not Available Not Available nebivolol 20 mg tablet TAKE 1 TABLET BY MOUTH ONCE DAILY active Not Available Not Available No t Available Accu-Chek Guide test strips USE 1 STRIP TO CHECK GLUCOSE TWICE DAILY DIRECTED active Not Available Not Available Not Available Accu-Chek Fastclix Lancet Drum USE 1 LANCET TO CHECK GLUCOSE TWICE DAILY DIRECTED active Not Available Not Available Not Available Ozempic 1 mg/dose (4 mg/3 mL) subcutaneous pen injector INJECT 1MG UNDER THE SKIN INTO THE APPRPRIATE AREA DIRECTED ONCE WEEKLY active Not Available Not Available Not Available Ozempic 0.25 mg or 0.5 mg (2 mg/3 mL) subcutaneous pen injector INJECT 0.5MG SUBCUTANEOU SLY ONCE WEEKLY active Not Available Not Available No t Available Vitals Date Recorded Body weight Body mass index (BMI) Body height Body temperature Oxygen saturation Oxygen saturation in Arterial blood by Pulse oximetry Heart rate Systolic blood pressure Diastolic blood pressure Provider Name and Address Organization Details Last Updated DateTime 4 574937. 91 g 39.1 kg/m2 160.02 cm 97.1 [degF] 98 % 98 % 82 /min 118 mm[Hg] 88 mm[Hg] Landon Quiñonez [place] - [facility] - [place] & [place] 4 09:19:28 Date Recorded Body height Body mass index (BMI) Body weight Body temperature Oxygen saturation Oxygen saturation in Arterial blood by Pulse oximetry Heart rate Systolic blood pressure Diastolic blood pressure Provider Name and Address Organization Details Last Updated DateTime 4 160.02 cm 36 kg/m2 66500.2 5 g 96.9 [degF] 98 % 98 % 72 /min 124 mm[Hg] 82 mm[Hg] Landon Quiñonez [facility] & [place] 4 09:54:40 Social History Question Answer Notes LastModified by Organizat ion Details LastModified Time Tobacco Smoking Status Never Smoker Landon Quiñonez [facility], [facility] & [place] 01/07/2024 09:20:56 What Is Your Level Of Caffeine Consumption? Occasional [email or web address] Information not available 01/07/2024 Sex: Unknown Functional Status Question Answer Note LastModified by Organization D etails LastModified Time What is your level of alcohol consumption? None [email or web address] Information not available 01/07/2024 Mental Status None recorded. Family History Nothing Reported. Medical History Condition Response Diabetes Y Hypertension Y Gynecological HistoryNo gynecological history recorded. Obstetrics History GPAL:G 0 P 0 0 0 0 Past Encounters Encounter ID Performer Location Encounter Start Date Encounter Closed Date Diagnosis/Indication Diagnosis SNOMED-CT Code Diagnosis ICD10 Code Diagnosis Note [id number] Massiel Basilio MD [facility] General Surgery [address] [address] 01/07/2024 08:59:46 01/07/2024 09:49:49 Sebaceous cyst of skin 589721070 L72.3 left thigh skin lesion. This may represent sebaceous cyst although some of the characteri stics are more consistent with basal cell carcinoma. I have scheduled the patient for complete excision of this area due to pain and rapid enlargemen t as well as suspicion for skin cancer. Informed consent was obtained. Risks and benefits of the procedure, including but not limited to, bleeding, infection, damage to surroundin g structures and ongoing symptoms were discussed. Standard of care efforts are taken to minimize risks. Typical hospital stay and recovery were reviewed. The typical postoperat whit pain regimen and avoidance of narcotics were discussed. The patient verbalized understand ing of the plan including the risks and benefits. Appropriat e preoperati ve testing as clinically indicated were ordered as a part of this patient's care. Type 2 xander betes mellitus without complication 456144339 E11.9 patient will stop Ozempic at least 7 days preoperati vely. 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 Sutures were removed without difficulty . I have recommende d warm compresses to the area. She should contact the office if the redness spreads. I do not believe that antibiotic s are necessary at present Health Concerns Section Related Observation LastModified by Organization Detai ls LastModified Time None Recorded Concern Status LastModified by Organization Details LastModified Time None Recorded Advance Directives Directive None Recorded Payers Insurance Date Sequence Insurance Name Policy Number Policy Garibay Covered Member ID Garibay Member ID Guarantor Name 04/11/2024 1 [place] [employer] [facility] (MEDICARE REPLACEMENT HMO) [id number] Jessica Albright [id number] Jessica Albright Notes Date Note Type Note Provider Name and Address Organization Details Recorded Time 01/07/2024 text/html 73-year-old woman referred for a painful, rapidly enlarging skin lesion on her left thigh. She is uncertain how long it has been present. It is enlarging rapidly and becoming more painful. She has also had some bleeding when it rubs on her clothing. Massiel Basilio MD [address], [place], [address], [facility] - [place] & [place] 01/07/2024 10:05:38 04/03/2024 text/html Status post excision of left thigh lesion. Pathology showed atypical fibroxanthoma. She feels well overall. She states she had some redness around 1 of the sutures yesterday and this area opened and drained, is now improving. Massiel Basilio MD [address], [place], [address], [place] - [facility] - [place] & [place] 04/04/2024 10:37:44 OBGyn Episode No OBEpisode recorded.
--- OUTSIDE RECORDS SUMMARY | 2024-12-31 09:16 | XMS_ITS | Clinical Summary ---
Author Organization Healthcare Address [address] [place] [address] Care Team Providers Care Rheostat Assembler Name Role Phone Unavailable Primary Care Provider Unavailabl e Family History Medical History Relation Name Comments Diabetes Other Relation Name Status Comments Other Social History Tobacco Use Types Packs/Day Years Used Date Smoking Tobacco: Never Comments Unknown Sex and Gender Information Value Date Recorded Sex Assigned at Not on file Legal Sex Female 7:28 PM EDT Gender Identity Not on file Sexual Orientation Not on file Last Filed Vital Signs Vital Sign Reading Time Taken Comments Blood Pressure - - Pulse - - Temperature - - Respiratory Rate - - Oxygen Saturation - - Inhaled Oxygen Concentration - - Weight 105 kg (231 lb 1 oz) 10/25/2015 10:12 AM EDT Height 165.1 cm (5' 5 ) 10/25/2015 10:12 AM EDT Body Mass Index 38.45 10/25/2015 10:12 AM EDT Plan of Treatment Health Maintenance Due Date Last Done Comments [facility]-Bone Density Scan 1950 [facility]-Depression Screening 1950 [facility]-/Child/Adol SDOH Screenings 1950 [facility]- SDOH Screenings 1968 [facility]-Adult SDOH Screenings 1968 [facility]-DTaP,Tdap,and Td Vaccine s (1 - Tdap) 1969 CT Colonography 10/27/1995 Colonoscopy 10/27/1995 FIT-DNA 10/27/1995 FIT 10/27/1995 FOBT 10/27/1995 Sigmoidoscopy 10/27/1995 [facility]-Colorectal Cancer Screening 10/27/1995 [facility]-Zoster Vaccines (1 of 2) 2000 [id number] Vaccine (2 - season) 2024 09/22/2020 [facility]-Influenza Vaccine (Seas[place] n Ended) 2025 03/16/2020, 05/24/2018 [facility]-RSV Vaccine: 60+ Years o r (1 - 1-dose 75+ series) 2025 [facility]-Pneumococcal Vaccine: 50 + Years Completed 04/16/2020, 04/06/2017 HPV Vaccines Aged Out No longer eligi ble based on patient's age to complete this topic [facility]-HIB Vaccines Aged Out No longer e ligible based on patient's age to complete this topic [facility]-Hepatitis A Vaccines Aged Out No longer eligible based on patient's age to complete this topic [facility]-IPV Vaccines Aged Out No longer e ligible based on patient's age to complete this topic [facility]-Rotavirus Vaccines Aged Out No lo nger eligible based on patient's age to complete this topic
--- OUTSIDE RECORDS SUMMARY | 2024-12-31 09:16 | XMS_ITS | Continuity of Care Document ---
Author Organization [facility], SURGERY SCHEDULE Address [address] [place] [address] Care Team Providers Care Paste Up Worker Name Role Phone GUILLERMINA ALCARAZ Primary Care Provider [phone] Assessment No assessment recorded. Plan of Treatment Reminders Order Date Submit Date Provider Last Modified By Organization Details Last Modified Time Details Appointments POST OP GLOBAL 2024 02:15P M RASHAD ROWLAND PA-C Not available Not available Not available Lab None recorded . Referral None recorded . Procedures None recorded . Surgeries None recorded . Imaging None recorded . Medication Orders None recorded . Patient TargetsNo targets recorded. Patient InstructionsNo instructions recorded. Reason for Referral None Reported. Problems Name Problem SNOMED Code Status Onset Date Resolution Date Notes Provider Name and Address Organization Details Recorded Time Type 2 diabetes mellitus 81672970 Active 025 Velma Waters [facility] 5 09:36:26 Problem Notes None recorded. Procedures Surgical History Date Name Laterality Status Provider Name and Address Organization Details Recorded Time 5 Op Note completed MIS VARELA MD [address] [place], [address], [facility] 12/24/2024 15:32:26 4 Injection Trigger Finger Ortho completed MIS VARELA MD [facility] [place], [address], [facility] 12/06/2023 13:35:55 2 OT Therapeutic Exercise completed ADOLFO OLIVARES JR, OTR/L, CHT [address] [place], [address], [facility] 12/01/2021 11:06:22 2 PT Paraffin Bath completed ADOLFO OLIVARES JR, OTR/L, CHT [address] [place], [address], [facility] 12/01/2021 10:55:52 2 OT Therapeutic Exercise completed ADOLFO OLIVARES JR, OTR/L, CHT [address] [place], [address], [facility] 11/24/2021 10:16:55 2 OT Evaluation - Moderate complexity completed ADOLFO OLIVARES JR, OTR/L, CHT [address] [place], [address], [facility] 11/14/2021 13:05:35 2 OT Therapeutic Exercise completed ADOLFO OLIVARES JR, OTR/L, CHT [address] [place], [address], [facility] 11/14/2021 13:17:40 2 Op Note completed MIS VARELA MD [address] [place] [address], [address], [facility] 11/09/2021 13:26:22 2 Injection Joint/Bursa, Interm completed MIS VARELA MD [address] [place] [address], [address], [facility] 10/27/2021 13:37:32 2 Injection Trigger Finger Ortho completed MIS VARELA MD [address] [place] [address], [address], [facility] 09/29/2021 12:31:57 Imaging Results None [...] PO QD WITH FOOD REGARDLES S OF PAIL LEVEL FOR 1 WEEK, THEN TAKE ONLY [...] Not Available Not Available Not Available Vitals None Recorded Social History None recorded. Functional Status None recorded. Mental Status None recorded. Family History Nothing Reported. Medical History Condition Response Diabetes Y Bleeding Disorder N Blood Thinners N Heart Conditions N Sleep Apnea N High Cholesterol Y Blood Clot N Liver Disease N Heart Attack ([place]) N Included as Review of Systems Y Hypertension Y Kidney Disease N Gynecological HistoryNo gynecological history recorded. Obstetrics History GPAL:G 0 P 0 0 0 0 Past Encounters Encounter ID Performer Location Encounter Start Date Encounter Closed Date Diagnosis/Indication Diagnosis SNOMED-CT Code Diagnosis ICD10 Code Diagnosis Note [id number] MIS VARELA MD [facility] [address] [place] [address] 11/27/2024 08:09:41 11/27/2024 09:40:50 Dupuytren's disease of palm 521922608 M72.0 Dupuytren' s disease in the palms with no associated contractur es Previously s/p Right hand palmar Dupuytren' s fasciectom y; Right ring trigger finger release (DOS: 11/09/21) Acquired t health and safety technician finger 5452558 M65.331 M65.351 -Right long trigger finger (CSI: 11/06/2023) -Right small trigger finger-Lef t index trigger finger (CSI: 09/29/2021) -currently resolved-P ossible left ring trigger finger-Pos sible left small trigger finger Previously s/p Right hand palmar Dupuytren' s fasciectom y; Right ring trigger finger release (DOS: 11/09/21) Postoperative care 19634 9007 Z48.89 Previously s/p Right hand palmar Dupuytren' s fasciectom y; Right ring trigger finger release (DOS: 11/09/21) Osteoarthr osis of the carpometacarpal joint of the thumb 95775595 M18.11 M18.12 -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 (CSI: 10/27/2021) -Right Eaton stage II/III CMC joint arthritis (CSI: 10/27/2021) [id number] MIS VARELA MD SURGERY SCHEDULE [address] [place] [address] 12/24/2024 06:53:49 12/24/2024 06:54:14 Health Concerns Section Related Observation LastModified by Organization Detai ls LastModified Time None Recorded Concern Status LastModified by Organization Details LastModified Time None Recorded Payers Encounter Date Sequence Insurance Name Policy Number Policy Garibay Covered Member ID Garibay Member ID Guarantor Name 12/24/2024 1 [place] (MEDICARE REPLACEMENT HMO) [id number] Jessica Albright [id number] Jessica Albright OBOllie Episode No OBEpisode recorded.
--- OUTSIDE RECORDS SUMMARY | 2024-12-31 09:16 | XMS_ITS | Continuity of Care Document ---
Author Organization [facility], ORTHOPEDICS [address] [place] [address] Care Team Providers Care Director Teen Post Name Role Phone DARIO ALCARAZ Primary Care Provider Assessment Encounter Date Assessment Date Assessment LastModified by Organization Details LastModified Time 11/27/2024 11/27/2024 Patient with further exacerbation of [...] for additional procedures, stiffness, damage to surrounding tissues/structur es/nerves/vessel s, wound complications, and infection. Patient expressed understanding [...] Details Recorded Time Type 2 diabetes mellitus 55079753 Active 025 Velma alcazar, [facility] 5 09:36:26 Problem Notes None recorded. Procedures Surgical History Date Name Laterality Status Provider Name and Address Organization Details Recorded Time 5 Op Note completed MIS VARELA MD [address] [place], [address], [facility] 12/24/2024 15:32:26 4 Injection Trigger Finger Ortho completed MIS VARELA MD [address] [place], [address], [facility] 12/06/2023 13:35:55 2 OT Therapeutic Exercise completed ADOLFO OLIVARES JR, OTR/L, CHT [address] [place], [address], [facility] 12/01/2021 11:06:22 2 PT Paraffin Bath completed ADOLFO OLIVARES JR, OTR/L, CHT [address] [place], [address], [facility] 12/01/2021 10:55:52 2 OT Therapeutic Exercise completed ADOLFO OLIVARES JR, OTR/L, CHT [address] [place], [address], [facility] 11/24/2021 10:16:55 2 OT Evaluation - Moderate complexity completed ADOLFO OLIVARES JR, OTR/L, CHT [address] [place], [address], [facility] 11/14/2021 13:05:35 2 OT Therapeutic Exercise completed ADOLFO OLIVARES JR, OTR/L, CHT [address] [place], [address], [facility] 11/14/2021 13:17:40 2 Op Note completed MIS VARELA MD [address] [place], [address], [facility] 11/09/2021 13:26:22 2 Injection Joint/Bursa, Interm completed MIS VARELA MD [address] [place], [address], [facility] 10/27/2021 13:37:32 2 Injection Trigger Finger Ortho completed MIS VARELA MD [address] [place], [address], [facility] 09/29/2021 12:31:57 Imaging Results None recorded. Procedure [...] Updated DateTime 11/27/2024 158.75 cm 36.5 kg/m2 60177.25 g Vlema Waters [facility] 11/27/2024 09:00:52 Social History None recorded. Functional Status None recorded. Mental Status None recorded. Family History Nothing Reported. Medical History Condition Response Blood Clot N Kidney Disease N Heart Conditions N Bleeding Disorder N Included as Review of Systems Y Blood Thinners N High Cholesterol Y Liver Disease N Heart Attack ([place]) N Diabetes Y Sleep Apnea N Hypertension Y Gynecological HistoryNo gynecological history recorded. Obstetrics History GPAL:G 0 P 0 0 0 0 Past Encounters Encounter ID Performer Location Encounter Start Date Encounter Closed Date Diagnosis/Indication Diagnosis SNOMED-CT Code Diagnosis ICD10 Code Diagnosis Note [id number] MIS VARELA MD [facility] [address] [place] [address] 11/27/2024 08:09:41 11/27/2024 09:40:50 Dupuytren's disease of palm 565552052 M72.0 Dupuytren' s disease in the palms with no associated contractur es Previously s/p Right hand palmar Dupuytren' s fasciectom y; Right ring trigger finger release (DOS: 11/09/21) Acquired t salesforce specialist finger 9966082 M65.331 M65.351 -Right long trigger finger (CSI: 11/06/2023) -Right small trigger finger-Lef t index trigger finger (CSI: 09/29/2021) -currently resolved-P ossible left ring trigger finger-Pos sible left small trigger finger Previously s/p Right hand palmar Dupuytren' s fasciectom y; Right ring trigger finger release (DOS: 11/09/21) Postoperative care 52736 9007 Z48.89 Previously s/p Right hand palmar Dupuytren' s fasciectom y; Right ring trigger finger release (DOS: 11/09/21) Osteoarthr osis of the carpometacarpal joint of the thumb 80763412 M18.11 M18.12 -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 (CSI: 10/27/2021) -Right Eaton stage II/III CMC joint arthritis (CSI: 10/27/2021) Health Concerns Section Related Observation LastModified by Organization Detai ls LastModified Time None Recorded Concern Status LastModified by Organization Details LastModified Time None Recorded Payers Encounter Date Sequence Insurance Name Policy Number Policy Garibay Covered Member ID Garibay Member ID Guarantor Name 11/27/2024 1 [place] (MEDICARE REPLACEMENT HMO) [id number] Jessica Albright [id number] Jessica Albright Notes Date Note Type Note Provider Name and Address Organization Details Recorded Time 11/27/2024 text/html Patient returns to the clinic today for evaluation of progressive bilateral hand pain. Reports ongoing pain associated with her Dupuytren's disease in the right hand especially with gripping activities. Consult requested by: [facility] Care Physician: Dr. Dario Alcaraz Hand dominance: RightLocation: Bilateral Hand Pain level: Date of injury:Duration: Recent Surgery: NoProcedure:Date of surgery:Surgeon(If Known): In office procedure? Yes-Right long trigger finger (CSI: 11/06/2023)-Left index trigger finger (CSI: 09/29/2021)-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 (CSI: 10/27/2021)-Right Eaton stage II/III CMC joint arthritis (CSI: 10/27/2021) Previous upper extremity surgery? YesProcedure: -Right hand palmar Dupuytren's fasciectomy-Right ring trigger finger releaseApproximate date of surgery: 11/09/2024Surgeon (if known): Dr. Doll you or an immediate family member ever seen our hand surgeons before? Yes Currently employed?: Retired Patient arrived in: [employer] Strength: right: left: MIS VARELA MD [address] [place], [address], [facility] 11/28/2024 13:51:31 OBGyn Episode No OBEpisode recorded.
== END 2024-12-31 23:59 | disposition home or self-care (01) ==
LOC: RAD 09:13
PROVIDERS: PCP Family Medicine; Visit Provider Family Medicine
DX: M85.80 Other specified disorders of bone density and structure, unspecified site (principal); Z78.0 Asymptomatic menopausal state; Z13.9 Encounter for screening, unspecified
CPT/HCPCS: 77080